=== PATIENT | female | born 1990 | race Asian ===

== ENCOUNTER 2021-01-12 10:35 | Outpatient (REF) | payer OTHER, SELFPAY ==
[2021-01-12 12:00] LABS: Hematocrit 37.5 % (37-47); Hemoglobin 11.7 g/dl (12.0-16.0); Mean Corpuscular HGB Conc 31.2 g/dl (31.0-35.0); Mean Corpuscular Hemoglobin 24.9 pg (27.0-33.0); Mean Corpuscular Volume 79.8 fL (80-98); Mean Platelet Volume 8.8 fL (9.4-12.3); Platelet Count 262 X10*3/uL (160-400); Red Cell Distribution Width 15.1 % (11.0-16.0); White Blood Count 6.1 X10*3/uL (4.8-10.8)
[2021-01-12 12:04] LABS: Estimated Average Glucose 126 mg/dL; Glucose Urine UA NEG (NEG); Leukocyte Esterase Urine 2+ (NEG); Nitrite Urine NEG (NEG); Specific Gravity - Urine 1.015 (1.005-1.025); Urine Blood 3+ (NEG); Urine Ketones NEG (NEG); Urine Protein NEG (NEG-TRACE)
[2021-01-12 12:09] LABS: Appearance Urine HAZY; Color Urine STRAW
[2021-01-12 12:36] LABS: Alanine Aminotransferase 25 U/L (0-31); Albumin Level 4.3 g/dL (3.5-5.0); Alkaline Phosphatase 73 U/L (39-117); Aspartate Amino Transferase 18 U/L (5-31); Bilirubin Direct < 0.2 mg/dL (0.0-0.5); Bilirubin Total 0.2 mg/dL (0.0-1.0); Blood Urea Nitrogen 9 mg/dL (9-16); Calcium 9.2 mg/dL (8.4-10.2); Cholesterol 163 mg/dL; Estimated Glomerular Filt Rate > 60; Glucose Random 98 mg/dL (60-115); HDL Cholesterol 44 mg/dL; LDL Cholesterol Calculated 98 mg/dl; Total Protein 7.5 g/dL (6.5-8.0); Triglycerides 106 mg/dL
[2021-01-12 12:40] LABS: Thyroid Stimulating Hormone 1.97 uIU/mL (0.32-4.0)
[2021-01-12 12:49] LABS: Bacteria Urine 1+ /LPF; Squamous Epithelial Cell Urine 2+ /LPF
[2021-01-12 12:52] LABS: Vitamin B12 451 pg/mL (200-900)
[2021-01-12 13:19] LABS: Anion Gap 11 (12-20); Carbon Dioxide 26 mmol/L (22-29); Chloride 107 mmol/L (96-108); Potassium 4.5 mmol/L (3.3-5.1); Sodium 139 mmol/L (135-145)
[2021-01-17 11:21] LABS: Vitamin D 25-OH, D2 <4 ng/mL; Vitamin D 25-OH, D3 11 ng/mL; Vitamin D 25-OH, Total 11 ng/mL (30-100)
== END 2021-01-12 10:36 | disposition home or self-care (01) ==
LOC: HO.LAB 10:35
PROVIDERS: PCP Internal Medicine; Visit Provider Internal Medicine
DX: R10.84 Generalized abdominal pain (principal); N93.8 Other specified abnormal uterine and vaginal bleeding
CPT/HCPCS: 36415; 80048; 80061; 80076; 81001; 81003; 82306; 82607; 82746; 83036; 84443; 85027

== ENCOUNTER 2021-01-26 08:13 | Outpatient (REF) | payer OTHER, SELFPAY ==
[2021-01-26 14:52] LABS: CT PCR NOT DETECTED (Not Detect.); NG PCR NOT DETECTED (Not Detect.)
[2021-01-27 09:22] LABS: BV Int Neg Control Negative (Negative); BV Int Pos Control Positive (Positive)
== END 2021-01-26 08:14 | disposition home or self-care (01) ==
LOC: HO.LAB 08:13
PROVIDERS: Visit Provider Obstetrics & Gynecology
DX: Z01.419 Encounter for gynecological examination (general) (routine) without abnormal findings (principal); R10.9 Unspecified abdominal pain; N93.8 Other specified abnormal uterine and vaginal bleeding; Z11.3 Encounter for screening for infections with a predominantly sexual mode of transmission; Z11.8 Encounter for screening for other infectious and parasitic diseases; Z97.5 Presence of (intrauterine) contraceptive device; Z01.00 Encounter for examination of eyes and vision without abnormal findings
CPT/HCPCS: 87480; 87491; 87510; 87591; 87660; 88142

== ENCOUNTER → 2022-02-28 10:11 | Outpatient (BNVA) | payer OTHER, SELFPAY | PROVIDERS: PCP Internal Medicine; Visit Provider Advanced Practice Midwife | DX: Z01.419 Encounter for gynecological examination (general) (routine) without abnormal findings (principal) ==

== ENCOUNTER 2022-05-19 14:45 | Outpatient (REF) | payer OTHER, SELFPAY ==
[2022-05-19 16:06] LABS: Hemoglobin 12.9 g/dl (12.0-16.0); Mean Corpuscular HGB Conc 32.3 g/dl (31.0-35.0); Mean Corpuscular Hemoglobin 26.3 pg (27.0-33.0); Mean Corpuscular Volume 81.5 fL (80.0-98.0); Mean Platelet Volume 8.8 fL (9.4-12.3); Platelet Count 233 X10*3/uL (160-400); Red Blood Count 4.91 X10*6/uL (4.20-5.50); Red Cell Distribution Width 14.4 % (11.0-16.0); White Blood Count 8.2 X10*3/uL (4.8-10.8)
[2022-05-19 16:27] LABS: Alanine Aminotransferase 28 U/L (0-31); Albumin Level 4.5 g/dL (3.5-5.0); Alkaline Phosphatase 73 U/L (39-117); Anion Gap 13 (12-20); Aspartate Amino Transferase 22 U/L (5-31); Bilirubin Direct 0.2 mg/dL (0.0-0.5); Bilirubin Total 0.4 mg/dL (0.0-1.0); Blood Urea Nitrogen 8 mg/dL (9-16); Calcium 9.2 mg/dL (8.4-10.2); Carbon Dioxide 24 mmol/L (22-29); Chloride 105 mmol/L (96-108); Cholesterol 148 mg/dL; Estimated Glomerular Filt Rate > 60; Glucose Random 81 mg/dL (60-115); HDL Cholesterol 39 mg/dL; LDL Cholesterol Calculated 91 mg/dl; Potassium 3.9 mmol/L (3.3-5.1); Sodium 138 mmol/L (135-145); Total Protein 7.9 g/dL (6.5-8.0); Triglycerides 91 mg/dL
[2022-05-19 16:29] LABS: Appearance Urine CLEAR; Color Urine STRAW; Glucose Urine UA NEG (NEG); Leukocyte Esterase Urine NEG (NEG); Nitrite Urine NEG (NEG); PH 5.5 (5.0-8.0); Specific Gravity - Urine <= 1.005 (1.005-1.025); Urine Blood TRACE (NEG); Urine Ketones NEG (NEG); Urine Protein NEG (NEG-TRACE)
[2022-05-19 16:47] LABS: Thyroid Stimulating Hormone 2.25 uIU/mL (0.32-4.0)
[2022-05-19 16:49] LABS: Bacteria Urine TRACE /LPF; RBC Urine 0 /HPF (0); Squamous Epithelial Cell Urine TRACE /LPF; WBC Urine 0 /HPF (0-4)
== END 2022-05-19 14:46 | disposition home or self-care (01) ==
LOC: HO.LAB 14:45
PROVIDERS: PCP Internal Medicine; Visit Provider Internal Medicine
DX: Z00.00 Encounter for general adult medical examination without abnormal findings (principal); F41.1 Generalized anxiety disorder; E66.09 Other obesity due to excess calories
CPT/HCPCS: 36415; 80048; 80061; 80076; 81001; 84443; 85027

== ENCOUNTER 2022-05-31 12:24 | Outpatient (REF) | payer OTHER, SELFPAY ==
[2022-05-31 13:58] LABS: Appearance Urine CLEAR; Color Urine STRAW; Glucose Urine UA NEG (NEG); Leukocyte Esterase Urine NEG (NEG); Nitrite Urine NEG (NEG); Specific Gravity - Urine <= 1.005 (1.005-1.025); Urine Blood NEG (NEG); Urine Ketones NEG (NEG); Urine Protein NEG (NEG-TRACE)
== END 2022-05-31 12:25 | disposition home or self-care (01) ==
LOC: HO.LAB 12:24
PROVIDERS: PCP Internal Medicine; Visit Provider Internal Medicine
DX: R30.0 Dysuria (principal)
CPT/HCPCS: 81003

== ENCOUNTER 2022-06-03 20:32 | Emergency (ER) | payer OTHER, SELFPAY ==
--- NOTE | ~2022-06-03 | CT_ITS ---
EXAMINATION: CT ABDOMEN AND PELVIS WITHOUT CONTRAST CLINICAL INFORMATION: Right flank pain. UTI symptoms. COMPARISON: None TECHNIQUE: Multidetector volumetric imaging was performed from the superior aspect of the liver through the pubic symphysis. Sagittal and coronal reformatted images were obtained on the technologist's workstation. This CT examination was performed using dose optimization techniques as appropriate, variously including the following: *Automated exposure control *Adjustment of mA and/or kV according to patient size (this includes techniques or standardized protocols for targeted exams where dose is matched to indication/reason for exam; i.e. extremities or head) *Use of iterative reconstruction technique DLP: 621 mGy-cm FINDINGS: LUNG BASES: The visualized lung bases are unremarkable. LIVER, GALLBLADDER, AND BILIARY TREE: The liver is normal in size, shape, and attenuation. No focal hepatic lesion or biliary ductal dilatation is present. Gallbladder unremarkable. PANCREAS: Unremarkable. SPLEEN: Unremarkable. ADRENAL GLANDS: Unremarkable. KIDNEYS AND URETERS: The kidneys are normal in size, shape, and attenuation. No hydronephrosis, hydroureter, or calculi seen. No perinephric stranding. BLADDER: No bladder wall thickening or perivesicular inflammation. GASTROINTESTINAL TRACT: The small and large bowel are unremarkable. The appendix is unremarkable. ABDOMINAL WALL: No significant hernia is appreciated. LYMPH NODES: Normal. VASCULAR: Unremarkable. PELVIC VISCERA: There is a 7.2 x 4.8 cm cyst within the left ovary measuring simple fluid attenuation. Right ovary is suspected to reside along the right posterolateral uterus. Uterus is grossly unremarkable. OSSEOUS STRUCTURES: Unremarkable. CT/CT abdomen pelvis wo con IMPRESSION: * Unremarkable unenhanced CT imaging appearance of the urinary tract. * Incidental 7.2 cm left ovarian cyst. These are typically incompletely characterized by ultrasound when they exceed 7 cm. As such, consider MRI of the pelvis without and with contrast for further evaluation.
--- NOTE | ~2022-06-03 | US_ITS ---
EXAMINATION: US PELVIS CLINICAL INFORMATION: Bilateral lower quadrant pain COMPARISON: CT dated 06/03/2022 TECHNIQUE: Ultrasound of the pelvis is performed using both transabdominal and transvaginal transducers along with Doppler. Transvaginal imaging is performed due to inadequate visualization transabdominally. Spectral analysis was utilized. FINDINGS: Uterus: The uterus is anteverted and measures 10.5 x 4.7 x 6.5 cm. The double wall endometrial thickness is 13 mm. There is a 1.0 x 0.7 x 0.6 cm echogenic structure within, or just deep to the dorsal fundal endometrium. The uterus is smooth in contour and has normal myometrial echogenicity. No visible fibroid. Adnexa: Both ovaries are visualized. There is normal color flow to the adnexa. There is no ovarian torsion. There is no pelvic ascites or fluid collection. Right ovary measures 5.2 x 2.1 x 3.1 cm. Left ovary is splayed around the previously seen anechoic simple cyst which measures 7.5 x 4.8 x 6.0 cm. No solid components are evident. Left ovary measures 8.9 x 4.7 x 6.2 cm in total. US/US pelvic and transvaginal IMPRESSION: * No evidence of ovarian torsion. * There is a 7.5 cm simple appearing cyst within the left ovary. As a precaution, recommend nonemergent MRI of the pelvis without and with contrast for further evaluation. * Nonspecific 1.0 cm echogenic structure within, or just deep to the dorsal fundal endometrium. This could represent an endometrial polyp, or possibly a submucosal leiomyoma/lipoleiomyoma. Also, assessment on follow up MRI recommended. Sonohysterography would lend further specificity is subsequently indicated.
--- NOTE | ~2022-06-03 | US_ITS ---
EXAMINATION: US PELVIS CLINICAL INFORMATION: Bilateral lower quadrant pain COMPARISON: CT dated 06/03/2022 TECHNIQUE: Ultrasound of the pelvis is performed using both transabdominal and transvaginal transducers along with Doppler. Transvaginal imaging is performed due to inadequate visualization transabdominally. Spectral analysis was utilized. FINDINGS: Uterus: The uterus is anteverted and measures 10.5 x 4.7 x 6.5 cm. The double wall endometrial thickness is 13 mm. There is a 1.0 x 0.7 x 0.6 cm echogenic structure within, or just deep to the dorsal fundal endometrium. The uterus is smooth in contour and has normal myometrial echogenicity. No visible fibroid. Adnexa: Both ovaries are visualized. There is normal color flow to the adnexa. There is no ovarian torsion. There is no pelvic ascites or fluid collection. Right ovary measures 5.2 x 2.1 x 3.1 cm. Left ovary is splayed around the previously seen anechoic simple cyst which measures 7.5 x 4.8 x 6.0 cm. No solid components are evident. Left ovary measures 8.9 x 4.7 x 6.2 cm in total. US/US pelvic ovarian doppler IMPRESSION: * No evidence of ovarian torsion. * There is a 7.5 cm simple appearing cyst within the left ovary. As a precaution, recommend nonemergent MRI of the pelvis without and with contrast for further evaluation. * Nonspecific 1.0 cm echogenic structure within, or just deep to the dorsal fundal endometrium. This could represent an endometrial polyp, or possibly a submucosal leiomyoma/lipoleiomyoma. Also, assessment on follow up MRI recommended. Sonohysterography would lend further specificity is subsequently indicated.
[2022-06-03 21:49] LABS: MANUAL DIFF FLAG NO
[2022-06-03 21:51] LABS: Basophils Percent Auto 0.2 % (0-2); Eosinophils Absolute Auto 0.1 X10*3/uL (0.0-0.4); Eosinophils Percent Auto 1.3 % (0-4); Hematocrit 37.4 % (37.0-47.0); Hemoglobin 12.1 g/dl (12.0-16.0); Imm Gran Abs Auto 0.03 X10*3/uL (0.00-0.03); Imm Gran Pct Auto 0.3 % (0.0-0.4); Lymphocytes Absolute Auto 3.6 X10*3/uL (1.2-4.9); Lymphocytes Percent Auto 35.5 % (20-40); Mean Corpuscular HGB Conc 32.4 g/dl (31.0-35.0); Mean Corpuscular Hemoglobin 26.7 pg (27.0-33.0); Mean Corpuscular Volume 82.4 fL (80.0-98.0); Mean Platelet Volume 8.6 fL (9.4-12.3); Monocytes Absolute Auto 0.5 X10*3/uL (0.1-1.2); Monocytes Percent Auto 4.9 % (2-11); Neutrophils Absolute Auto 5.9 x10*3/uL (2.0-8.3); Neutrophils Percent Auto 57.8 % (45-73); Platelet Count 217 X10*3/uL (160-400); Red Blood Count 4.54 X10*6/uL (4.20-5.50); Red Cell Distribution Width 14.2 % (11.0-16.0); White Blood Count 10.2 X10*3/uL (4.8-10.8)
[2022-06-03 21:58] VITALS: BP 147/86; PULSE 75; RESP 16; TEMP 36.5; O2SAT 99; BMI 30.1
[2022-06-03 22:21] LABS: Alanine Aminotransferase 28 U/L (0-31); Albumin Level 4.2 g/dL (3.5-5.0); Alkaline Phosphatase 75 U/L (39-117); Anion Gap 14 (12-20); Aspartate Amino Transferase 20 U/L (5-31); Bilirubin Total < 0.2 mg/dL (0.0-1.0); Blood Urea Nitrogen 11 mg/dL (9-16); Calcium 9.4 mg/dL (8.4-10.2); Carbon Dioxide 27 mmol/L (22-29); Chloride 104 mmol/L (96-108); Creatinine Clr Calc Pharmacy 113.9; Estimated Glomerular Filt Rate > 60; Glucose Random 89 mg/dL (60-115); Lipase 50 U/L (8-78); Potassium 3.5 mmol/L (3.3-5.1); Sodium 141 mmol/L (135-145); Total Protein 7.4 g/dL (6.5-8.0)
[2022-06-03 22:41] LABS: Appearance Urine CLEAR; Color Urine STRAW; Glucose Urine UA NEG (NEG); Leukocyte Esterase Urine NEG (NEG); Nitrite Urine NEG (NEG); Specific Gravity - Urine <= 1.005 (1.005-1.025); Urine Blood NEG (NEG); Urine Ketones NEG (NEG); Urine Protein NEG (NEG-TRACE)
[2022-06-03 22:43] LABS: UPreg QC Valid YES; Urine Pregnancy NEGATIVE (NEGATIVE)
--- NOTE | 2022-06-03 23:03 | ED.FEMALEGU ---
HPI - Female Genitourinary General Chief complaint: Urogenital-Female Stated complaint: uti, pain in abd Time Seen by Provider: 06/03/22 23:02 Source: patient Mode of arrival: ambulatory Limitations: no limitations History of Present Illness HPI Narrative: This is a 32-year-old female presenting to the emergency department with complaints of abdominal pain in the lower region, and urinary tract symptoms, X 1week. Patient tells me that she took an at-home urinary tract infection test and it was positive with high leukocytes, she tells me she drink cranberry juice and garlic extract. She tells me it was repeated by her PCP and it was normal. She tells me that she is still having bladder spasming, dysuria and urgency as well as right-sided flank pain. She also reports subjective fevers, chills and fatigue. Denies chest pain, shortness of breath, nausea, vomiting, changes in bowel habits. MD elicited complaint: UTI Onset (ago): week(s) (1) Severity: moderate Severity scale (1-10): 10 Quality of pain: cramping and aching Consistency: constant Vaginal discharge: none Vaginal bleeding: none Exacerbating factors: palpation Relieving factors: none Associated symptoms: abdominal pain, weakness, fever and chills Treatment prior to arrival: other (Garlic extract and cranberry jucie) Related Data Previous Rx's Medication Instructions Recorded prenat.vits,darnell,avg-[id number] 1 tab PO DAILY #90 tabs 02/28/22 escitalopram oxalate 10 mg tablet 10 mg PO DAILY 30 days #30 tabs 05/19/22 naproxen 500 mg tablet 500 mg PO BID PRN pain #14 tabs 06/04/22 Allergies Allergy/AdvReac Type Severity Reaction Status Date / Time No Known Allergies Allergy Verified 05/19/22 13:38 Review of Systems Review of Systems: Constitutional : No Weight loss, No Fever, No Chills, No Fatigue, No Malaise ENT/Mouth : No sore throat, No Rhinorrhea Eyes: No Eye Pain, No Swelling, No Redness Cardiovascular : No Chest Pain, No SOB, No Dyspnea on Exertion, No Orthopnea, No Edema, No Palpitations Respiratory : No Cough, No Sputum, No Wheezing Gastrointestinal : No Nausea, No Vomiting, No Diarrhea, No Constipation, No abdominal Pain, No Hematochezia, No Melena Genitourinary : + Dysuria, + Urinary Frequency, No Hematuria, Musculoskeletal : No joint pain, No Myalgias, No Joint Swelling Skin : No Skin Lesions, No rash Neuro : No Weakness, No Numbness, No Dizziness, No Headache Psych : No Anxiety/Panic, No Depression All other systems reviewed and are negative Yes all other systems are reviewed and are negative [facility] Past Medical History Medical History Abdominal pain Dysfunctional uterine bleeding Obesity (BMI 30.0-34.9) Other obesity due to excess calories Plantar fasciitis Surgical History History of rectal abscess Family History Family History Father No problems noted. Mother Breast lump Sister No problems noted. 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 Oriented X3.? No acute distress.? Head: Normocephalic, atraumatic, no step-offs or deformities Eyes: Pupils equal, round and reactive to light.? ENT: Pharynx normal.? Neck: Normal inspection.? Neck supple.? CVS: Normal heart rate and rhythm.? Pulses normal.? Respiratory: No respiratory distress.? Breath sounds normal.? Abdomen: Soft and +right-sided flank tenderness, positive CVA tenderness on the right. There is also pain to palpation to the right lower quadrant, suprapubic region and left lower quadrant. .? Skin: Skin warm and dry.? Normal skin color.? Normal skin turgor.? Extremities: No lower extremity edema.? No calf ttp. 5/5 strength to bilateral upper and lower extremities Neuro: Oriented X 3.? No motor deficit.? No sensory deficit. CN 2-12 intact Course Reevaluation(s) Reevaluation #1: CBC within normal limits. Chemistry with no acute findings. Lipase within normal limits. Urine clean. CT of the abdomen and pelvis with concerns of a large left ovarian cyst, patient having lower abdominal pain and tenderness to palpation will obtain an ultrasound to rule out torsion, partial torsion any abnormalities. I had a conversation with patient about her labs, urine, CT scan. I asked her if there is any chance she may have a sexually transmitted infection she tells me no. Low suspicion for PID at this time. Will obtain a pelvic ultrasound to rule out torsion. Time: 00:23 Reevaluation #2: At this time pelvic ultrasound pending with Doppler pending. Sign-out given to Dr. Greene pending US and improvment Time: 01:56 MDM - Female Genitourinary MDM Narrative Medical decision making narrative: 2300 32 yo f presents w/ lower abd pain, right sided flank pain and uti sx X1 week. Physical examination significant for right-sided flank tenderness, positive CVA tenderness on the right. There is also pain to palpation to the right lower quadrant, suprapubic region and left lower quadrant. Will rule out UTI, pyelo, kidney stones. No signs of acute abdomen at this time. Plan at this time is basic labs, urine and abdominal CT. Medical Records Attestation: I reviewed the patient's medical records. Lab Data Attestation: I reviewed the patient's lab results. Result diagrams: 06/03/22 21:45 06/03/22 21:45 Labs: Lab Results 06/03/22 06/03/22 06/03/22 Range/Units 21:45 21:45 22:35 WBC 10.2 (4.8-10.8) X10*3/uL RBC 4.54 (4.20-5.50) X10*6/uL Hgb 12.1 (12.0-16.0) g/dl Hct 37.4 (37.0-47.0) % MCV 82.4 (80.0-98.0) fL MCH 26.7 L (27.0-33.0) pg MCHC 32.4 (31.0-35.0) g/dl RDW 14.2 (11.0-16.0) % Plt Count 217 (160-400) X10*3/uL MPV 8.6 L (9.4-12.3) fL Immature Gran % (Auto) 0.3 (0.0-0.4) % Neut % (Auto) 57.8 (45-73) % Lymph % (Auto) 35.5 (20-40) % Pettis % (Auto) 4.9 (2-11) % Eos % (Auto) 1.3 (0-4) % Baso % (Auto) 0.2 (0-2) % Lymph # (Auto) 3.6 (1.2-4.9) X10*3/uL Pettis # (Auto) 0.5 (0.1-1.2) X10*3/uL Eos # (Auto) 0.1 (0.0-0.4) X10*3/uL Baso # (Auto) 0.0 (0.0-0.2) X10*3/uL Abs Immat Gran (auto) 0.03 (0.00-0.03) X10*3/uL Absolute Neuts (auto) 5.9 (2.0-8.3) x10*3/uL Absolute Nucleated RBC 0.000 (0.0-0.012) X10*3/uL Nucleated RBC % (auto) 0.0 (0.0-0.2) /100WBC Sodium 141 (135-145) mmol/L Potassium 3.5 (3.3-5.1) mmol/L Chloride 104 (96-108) mmol/L Carbon Dioxide 27 (22-29) mmol/L Anion Gap 14 (12-20) BUN 11 (9-16) mg/dL Creatinine 0.71 (0.5-1.4) mg/dL Estim Creat Clear Calc 113.9 Estimated GFR > 60 Random Glucose 89 (60-115) mg/dL Calcium 9.4 (8.4-10.2) mg/dL Total Bilirubin < 0.2 (0.0-1.0) mg/dL AST 20 (5-31) U/L ALT 28 (0-31) U/L Alkaline Phosphatase 75 (39-117) U/L Total Protein 7.4 (6.5-8.0) g/dL Albumin 4.2 (3.5-5.0) g/dL Lipase 50 (8-78) U/L Urine Color STRAW Urine Appearance CLEAR Urine pH 6.0 (5.0-8.0) Ur Specific [place] <= 1.005 (1.005-1.025) Urine Protein NEG (NEG-TRACE) MG/DL Urine Glucose (UA) NEG (NEG) MG/DL Urine Ketones NEG (NEG) MG/DL Urine Blood NEG (NEG) Urine Nitrite NEG (NEG) Ur Leukocyte Esterase NEG (NEG) Urine Test (NEGATIVE) 06/03/22 Range/Units 22:35 WBC (4.8-10.8) X10*3/uL RBC (4.20-5.50) X10*6/uL Hgb (12.0-16.0) g/dl Hct (37.0-47.0) % MCV (80.0-98.0) fL MCH (27.0-33.0) pg MCHC (31.0-35.0) g/dl RDW (11.0-16.0) % Plt Count (160-400) X10*3/uL MPV (9.4-12.3) fL Immature Gran % (Auto) (0.0-0.4) % Neut % (Auto) (45-73) % Lymph % (Auto) (20-40) % Pettis % (Auto) (2-11) % Eos % (Auto) (0-4) % Baso % (Auto) (0-2) % Lymph # (Auto) (1.2-4.9) X10*3/uL Pettis # (Auto) (0.1-1.2) X10*3/uL Eos # (Auto) (0.0-0.4) X10*3/uL Baso # (Auto) (0.0-0.2) X10*3/uL Abs Immat Gran (auto) (0.00-0.03) X10*3/uL Absolute Neuts (auto) (2.0-8.3) x10*3/uL Absolute Nucleated RBC (0.0-0.012) X10*3/uL Nucleated RBC % (auto) (0.0-0.2) /100WBC Sodium (135-145) mmol/L Potassium (3.3-5.1) mmol/L Chloride (96-108) mmol/L Carbon Dioxide (22-29) mmol/L Anion Gap (12-20) BUN (9-16) mg/dL Creatinine (0.5-1.4) mg/dL Estim Creat Clear Calc Estimated GFR Random Glucose (60-115) mg/dL Calcium (8.4-10.2) mg/dL Total Bilirubin (0.0-1.0) mg/dL AST (5-31) U/L ALT (0-31) U/L Alkaline Phosphatase (39-117) U/L Total Protein (6.5-8.0) g/dL Albumin (3.5-5.0) g/dL Lipase (8-78) U/L Urine Color Urine Appearance Urine pH (5.0-8.0) Ur Specific [place] (1.005-1.025) Urine Protein (NEG-TRACE) MG/DL Urine Glucose (UA) (NEG) MG/DL Urine Ketones (NEG) MG/DL Urine Blood (NEG) Urine Nitrite (NEG) Ur Leukocyte Esterase (NEG) Urine Test NEGATIVE (NEGATIVE) Critical Care Time Critical Care Time Critical Care Time: No Discharge Plan Discharge Clinical Impression: Cystitis, Ovarian cyst Patient Disposition: Home, Self-Care Instructions: Ovarian Cyst (ED) Additional Instructions: Take your medications as prescribed. If you were prescribed antibiotics today, it is important that you take your medication to their entirety, do not skip any doses, do not finish them early. Follow-up with your primary care provider this week. Follow up with OBGYN in a week or two or with worsening symptoms Return to the emergency department with new or worsening symptoms. Such as fevers, chills, chest pain, shortness of breath, nausea, vomiting, dizziness, headache, vision changes, lethargy In case of emergency call 911 ?CT/CT abdomen pelvis wo con IMPRESSION: *? Unremarkable unenhanced CT imaging appearance of the urinary tract. *? Incidental 7.2 cm left ovarian cyst. These are typically incompletely characterized by ultrasound when they exceed 7 cm. As such, consider MRI of the pelvis without and with contrast for further evaluation.? ? Prescriptions: New naproxen 500 mg tablet 500 mg PO BID PRN (Reason: pain) Qty: 14 0RF Rx Instructions: Take with food No Action escitalopram oxalate 10 mg tablet 10 mg PO DAILY 30 Days Qty: 30 1RF prenat.vits,darnell,[id number]-[id number] Tablet 1 tab PO DAILY Qty: 90 3RF Referrals: Physician,Maisha J [Primary Care Provider] - 2 days Felipe Raymundo MD [Physician] - 1 week Stand Alone Forms: Work/School Release
[2022-06-03 23:49] VITALS: BP 116/69; PULSE 72; RESP 20; TEMP 36.9; O2SAT 100
[2022-06-04] MEDS: Ketorolac Tromethamine 15 MG/ML VIAL IM (02:14)
== END 2022-06-04 02:23 | disposition home or self-care (01) ==
PROVIDERS: Internal Medicine; Emergency Provider Emergency Medicine Emergency Medical Services
DX: N30.90 Cystitis, unspecified without hematuria (principal); N83.292 Other ovarian cyst, left side; E66.9 Obesity, unspecified; Z68.30 Body mass index [BMI] 30.0-30.9, adult
CPT/HCPCS: 36415; 74176; 76830; 76856; 80053; 81003; 81025; 83690; 85025; 93975; 96372; 99284; J1885

== ENCOUNTER → 2022-07-20 12:08 | Outpatient (BNVA) | payer OTHER, SELFPAY | PROVIDERS: PCP Internal Medicine; Visit Provider Obstetrics & Gynecology | DX: R93.5 Abnormal findings on diagnostic imaging of other abdominal regions, including retroperitoneum (principal); N83.209 Unspecified ovarian cyst, unspecified side | CPT/HCPCS: 99202 ==

== ENCOUNTER 2022-08-03 09:04 | Outpatient (REF) | payer OTHER, SELFPAY ==
--- NOTE | ~2022-08-03 | MR_ITS ---
EXAMINATION: MR PELVIS WITHOUT AND WITH CONTRAST CLINICAL INFORMATION: Follow up left ovarian cyst. COMPARISON: Previous CT of the abdomen and pelvis and pelvic ultrasound May 2022. TECHNIQUE: Sagittal, axial and coronal sequences through the pelvis with and without contrast. The patient received 8 mL intravenous Gadavist contrast. FINDINGS: The uterus is normal in size and shape and measures 7.6 x 4.5 x 6.5 cm in dimension. No focal uterine lesion is seen. Endometrial thickness measures 1 cm. Junctional zone is normal in thickness. The cervix is normal. The right ovary is normal-appearing and measures 3.4 x 2.5 x 2.2 cm. The left ovary measures 2.4 x 2.4 x 1.8 cm. There is a 5.5 x 4.2 x 6.2 cm simple left adnexal cyst. This is low signal on T1-weighted sequences, high signal on T2-weighted sequences. This has no areas of wall thickening or mural nodule. This demonstrates no evidence of enhancement and is suggestive of a simple cyst. This is located anterior to the uterus. This may cause mass effect on the bladder. The bladder is not optimally distended. There is a small amount of fluid in the pelvis. No adenopathy. Visualized vascular structures are normal. No hernia. Visualized bowel is normal. There is degenerative disc disease at L4-L5. The bony structures are otherwise normal. MR/MR pelvis wo/w con IMPRESSION: 5.5 x 4.2 x 6.2 cm simple left adnexal cyst. This is slightly to the left of midline and anterior to the uterus. This may cause mass effect on the bladder. This is similar to May 2022 exams.
== END 2022-08-03 09:05 | disposition home or self-care (01) ==
LOC: HO.MRI 09:04
PROVIDERS: Visit Provider Obstetrics & Gynecology
DX: N83.209 Unspecified ovarian cyst, unspecified side (principal); R93.5 Abnormal findings on diagnostic imaging of other abdominal regions, including retroperitoneum
CPT/HCPCS: 72197; A9585

== ENCOUNTER → 2022-09-15 09:00 | Outpatient (BNVA) | payer OTHER, SELFPAY | PROVIDERS: PCP Internal Medicine; Visit Provider Obstetrics & Gynecology | DX: N83.209 Unspecified ovarian cyst, unspecified side (principal) | CPT/HCPCS: 99212 ==

== ENCOUNTER 2023-03-03 09:59 | Outpatient (REF) | payer OTHER, SELFPAY ==
[2023-03-09 07:24] LABS: HPV mRNA E6/E7 rflx Not Detected (Not Detected)
== END 2023-03-03 10:00 | disposition home or self-care (01) ==
LOC: HO.LNP 09:59
PROVIDERS: PCP Internal Medicine; Visit Provider Advanced Practice Midwife
DX: Z01.419 Encounter for gynecological examination (general) (routine) without abnormal findings (principal); N83.202 Unspecified ovarian cyst, left side; Z20.2 Contact with and (suspected) exposure to infections with a predominantly sexual mode of transmission
CPT/HCPCS: 87624; 88142

== ENCOUNTER 2023-03-15 11:02 | Outpatient (REF) | payer OTHER, SELFPAY ==
--- NOTE | ~2023-03-15 | US_ITS ---
EXAMINATION: US PELVIS CLINICAL INFORMATION: Ovarian cyst COMPARISON: Previous MR of the pelvis July [address] and ultrasound of the pelvis May 2022 TECHNIQUE: Ultrasound of the pelvis is performed using both transabdominal and transvaginal transducers along with Doppler. Transvaginal imaging is performed due to inadequate visualization transabdominally. FINDINGS: The uterus is anteverted and measures 7.7 x 4.5 x 5.7 cm in dimension. No focal uterine lesion. Endometrial thickness is normal measuring 1 cm. There are nabothian cysts in the cervix. The right ovary is normal-appearing and measures 3.3 x 1.5 x 1.8 cm. Left ovary is enlarged and measures 5.9 x 4.6 x 5.5 cm. There is a 4.8 x 5.2 x 6.5 cm simple left ovarian cyst. This is not appreciably changed in size from previous exams. This is probably benign. No additional follow-up recommended. Arterial and venous flow is seen in the left ovary. There is a small amount of fluid in the pelvis. US/US pelvic and transvaginal IMPRESSION: Stable 5 x 6 cm left ovarian cyst.
== END 2023-03-15 11:03 | disposition home or self-care (01) ==
LOC: HO.US 11:02
PROVIDERS: PCP Internal Medicine; Visit Provider Obstetrics & Gynecology
DX: N83.209 Unspecified ovarian cyst, unspecified side (principal)
CPT/HCPCS: 76830; 76856

== ENCOUNTER → 2023-04-05 12:16 | Outpatient (BNVA) | payer OTHER, SELFPAY | PROVIDERS: PCP Internal Medicine; Visit Provider Obstetrics & Gynecology | DX: N83.292 Other ovarian cyst, left side (principal) | CPT/HCPCS: 99212 ==

== ENCOUNTER 2023-05-24 08:29 | Outpatient (AMB) | payer OTHER, SELFPAY ==
--- NOTE | 2023-05-24 08:59 | MHC.PC.OV ---
Vital Signs 05/24/23 09:01 Height 5 ft 3 in Weight 174 lb 4 oz BMI 30.9 BP 112/70 Blood Pressure Location Lt brachial Position Sitting Pulse 84 Pulse Source Pulse Oximeter Pulse Oximetry (%) 99 Oxygen Delivery Method Room Air Intake Visit Reasons: Annual exam Intake Note: Patient is here today for a physical. Acute Care Physical Therapist Required: No Quantometer Operator: Not Required per policy Accompanied by: Self / Same As Patient Allergies No Known Allergies Allergy (Verified 05/24/23 09:00) Tobacco use date assessed: 05/24/23 Dental Screening Dental Screen Date: 05/24/23 Did you have a dental visit in the last 12 months?: Yes Did you have a dental problem in the last 6 months where you did not have access to dental care?: No Was dental information given to patient?: Patient has dentist HPI Annual exam HPI Details 33-year-old female presents to the office requesting an annual physical. In addition patient wants to discuss her condition of general anxiety. 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 A new store has opened closeby. Patient feels release test, racing thoughts and unable to focus. Crying spells. [facility] Medical History Abdominal pain Dysfunctional uterine bleeding Obesity (BMI 30.0-34.9) Other obesity due to excess calories Plantar fasciitis Simple ovarian cyst Surgical History History of rectal abscess Family History Father No problems noted. Mother Breast lump Sister No problems noted. 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 1. Little interest or pleasure in doing things: not at all 2. Feeling down, depressed, or hopeless: not at all 3. Trouble falling or staying asleep, or sleeping too much: not at all 4. Feeling tired or having little energy: not at all 5. Poor appetite or overeating: not at all 6. Feeling bad about yourself - or that you are a failure or have let yourself or your family down: not at all 7. Trouble concentrating on things, such as reading the newspaper or watching television: not at all 8. Moving or speaking so slowly that other people could have noticed. Or the opposite - being so fidgety or restless that you have been moving around a lot more than usual: not at all 9. Thoughts that you would be better off or of hurting yourself in some way: not at all Total score: 0 Depression Screening Interpretation: Negative Source: Developed by Drs. Vijay Trevino, Doris Zhou, Nikko Lyon and colleagues, with an educational geno from [employer]. Thrive Questionnaire Date Thrive assessed: 05/24/23 I am a: Patient What is your living situation today?: I have a steady place to live Within the past 12 months, did the food you bought not last and you didn't have the money to get more?: Never true Within the past 12 months, did you worry whether your food would run out before you got money to buy more?: Never true Do you have trouble paying for medicines?: No Do you have trouble getting transportation to medical appointments?: No Do you have trouble paying your heating and electricity bill?: No Do you have trouble taking care of your child, family member or friend?: No Do you have trouble with day-to-day activities such as bathing, preparing meals, shopping, managing finances, etc.?: No Are you currently unemployed and looking for a job?: No Are you interested in more education?: No Currently or been in a relationship where the following occur: no concerns reported AUDIT C Alcohol Use Questionnaire (AUDIT-C) 1. How often do you have a drink containing alcohol?: Monthly or less 2. How many drinks containing alcohol do you have on a typical day when you are drinking?: 1 or 2 Total Score: 1 MANN-7 AMB Questionnaire MANN-7 Date MANN - 7 assessed: 05/24/23 Feeling nervous, anxious, or on edge: 3 = Nearly every day Not being able to stop or control worryin = Nearly every day Worrying too much about different things: 3 = Nearly every day Trouble relaxin = More than half the days Being so restless that it is hard to sit still: 2 = More than half the days Becoming easily annoyed or irritable: 0 = Not at all Feeling afraid as if something awful might happen: 2 = More than half the days Total MANN-7 score (0-4 normal; 5-9 mild; 10-14 moderate; 15-21 severe): 15 Source: Developed by Drs. Vijay Trevino, Doris Zhou, Nikko Lyon and colleagues, with an educational geno from [employer]. Physical exam (Primary Care) Vital Signs: Last Vital Signs Pulse 84 05/24/23 09:01 BP 112/70 05/24/23 09:01 Pulse Ox 99 05/24/23 09:01 Oxygen Delivery Method Room Air 05/24/23 09:01 Care Plan Goal for BP management: Blood pressure is in range. Continue current medications. BMI result Body Mass Index 30.9 BMI Assessment/Plan discussion: High (1 lb per week weight loss suggested.) Tobacco/Smoking Status: Tobacco use Status Tobacco use date assessed 05/24/23 05/24/23 09:05 Patient Tobacco Use Status Never used Tobacco 05/24/23 09:05 e-Cigarette/Vaping Use Never Used 05/24/23 09:05 PHQ-9: PHQ-9 Score PHQ-9: Total score 0 05/24/23 09:05 Depression Screening Interpretation: Negative Thrive Assessment: Date of Thrive Assessment Date Thrive assessed 05/24/23 05/24/23 09:05 Currently or been in a relationship where the following occur: no concerns reported Const General: cooperative, healthy appearing and comfortable HENMT Head: Yes normal to inspection and Yes atraumatic Eyes General: appearance normal, both eyes and all related structures Neck Neck: Yes normal visual inspection and Yes full ROM Chest Chest palpation & inspection: normal inspection of the chest Resp Effort & Inspection: normal respiratory effort Auscultation: clear to auscultation bilaterally Cardio Jugular venous distension: no JVD Palpation: normal PMI Rate: regular rate Heart sounds: S1 normal heart sound present and S2 normal heart sound present GI Palpation (GI): Soft to palpation and No hepatosplenomegaly present Extrem General: Yes normal to inspection and Yes full ROM Assessment and Plan Assessment & Plan (1) Generalized anxiety disorder: Code(s): F41.1 - Generalized anxiety disorder Plan: Various options discussed. I advised patient not to start pharmacotherapy immediately. A therapist has been arranged. Community health worker was contacted in this regard. (2) Other obesity due to excess calories: Code(s): E66.09 - Other obesity due to excess calories Plan: Counseling on the importance of diet and exercise done. (3) Obesity (BMI 30.0-34.9): Code(s): E66.9 - Obesity, unspecified (4) Annual physical exam: Code(s): Z00.00 - Encounter for general adult medical examination without abnormal findings Plan: Will call with results of blood work. Orders: Orders Basic Metabolic Panel Today E66.09 - Other obesity due to excess calories, E66.9 - Obesity, unspecified, E78.00 - Pure hypercholesterolemia, unspecified, F41.1 - Generalized anxiety disorder Lipid Panel Today E66.09 - Other obesity due to excess calories, E66.9 - Obesity, unspecified, E78.00 - Pure hypercholesterolemia, unspecified, F41.1 - Generalized anxiety disorder Liver Panel Today E66.09 - Other obesity due to excess calories, E66.9 - Obesity, unspecified, E78.00 - Pure hypercholesterolemia, unspecified, F41.1 - Generalized anxiety disorder Thyroid Stimulating Hormone Today E66.09 - Other obesity due to excess calories, E66.9 - Obesity, unspecified, E78.00 - Pure hypercholesterolemia, unspecified, F41.1 - Generalized anxiety disorder Complete Blood Count no Diff Today E66.09 - Other obesity due to excess calories, E66.9 - Obesity, unspecified, E78.00 - Pure hypercholesterolemia, unspecified, F41.1 - Generalized anxiety disorder UA and rflx microscopic Today E66.09 - Other obesity due to excess calories, E66.9 - Obesity, unspecified, E78.00 - Pure hypercholesterolemia, unspecified, F41.1 - Generalized anxiety disorder Coding Level of Care Code Est Pt Level 3 (72710) Est Pt Prev Care 18-39y(29034) Diagnoses Generalized anxiety disorder F41.1 Other obesity due to excess calories E66.09 Obesity (BMI 30.0-34.9) E66.9 Annual physical exam Z00.00
[2023-05-24 09:01] VITALS: BP 112/70; PULSE 84; O2SAT 99; BMI 30.9
== END 2023-05-24 09:43 | disposition home or self-care (01) ==
PROVIDERS: PCP Internal Medicine; Visit Provider Internal Medicine
DX: Z00.00 Encounter for general adult medical examination without abnormal findings (principal); F41.1 Generalized anxiety disorder; E66.09 Other obesity due to excess calories; Z68.30 Body mass index [BMI] 30.0-30.9, adult
CPT/HCPCS: 99395

== ENCOUNTER 2023-05-24 09:51 | Outpatient (REF) | payer OTHER, SELFPAY ==
[2023-05-24 10:52] LABS: Hemoglobin 13.4 g/dl (12.0-16.0); Mean Corpuscular HGB Conc 31.9 g/dl (31.0-35.0); Mean Corpuscular Hemoglobin 26.3 pg (27.0-33.0); Mean Corpuscular Volume 82.4 fL (80.0-98.0); Mean Platelet Volume 8.7 fL (9.4-12.3); Platelet Count 240 X10*3/uL (160-400); Red Cell Distribution Width 14.2 % (11.0-16.0); White Blood Count 7.3 X10*3/uL (4.8-10.8)
[2023-05-24 11:37] LABS: Alanine Aminotransferase 25 U/L (0-31); Albumin Level 4.3 g/dL (3.5-5.0); Alkaline Phosphatase 68 U/L (39-117); Anion Gap 11 (12-20); Aspartate Amino Transferase 17 U/L (5-31); Bilirubin Direct 0.2 mg/dL (0.0-0.5); Bilirubin Total 0.4 mg/dL (0.0-1.0); Blood Urea Nitrogen 7 mg/dL (9-16); Calcium 9.7 mg/dL (8.4-10.2); Carbon Dioxide 24 mmol/L (22-29); Chloride 107 mmol/L (96-108); Cholesterol 157 mg/dL; Estimated Glomerular Filt Rate > 60; Glucose Random 99 mg/dL (60-115); HDL Cholesterol 40 mg/dL; LDL Cholesterol Calculated 98 mg/dl; Sodium 138 mmol/L (135-145); Total Protein 7.9 g/dL (6.5-8.0); Triglycerides 99 mg/dL
[2023-05-24 11:45] LABS: Thyroid Stimulating Hormone 3.18 uIU/mL (0.32-4.0)
[2023-05-24 12:17] LABS: Appearance Urine Cloudy; Color Urine Yellow; Glucose Urine UA Negative (Negative); Leukocyte Esterase Urine Moderate (2+) (Negative); Nitrite Urine Negative (Negative); UMIC TRIGGER UA YES; Urine Blood Negative (Negative); Urine Ketones Negative (Negative); Urine Protein Negative (Neg-Trace)
[2023-05-24 12:20] LABS: Bacteria Urine 2+ (None Seen); Hyaline Casts Urine 0-2 /LPF (0-2); RBC Urine 0-2 /HPF (0-2)
== END 2023-05-24 09:52 | disposition home or self-care (01) ==
LOC: HO.LAB 09:51
PROVIDERS: PCP Internal Medicine; Visit Provider Internal Medicine
DX: E66.09 Other obesity due to excess calories (principal); F41.1 Generalized anxiety disorder; E78.00 Pure hypercholesterolemia, unspecified
CPT/HCPCS: 36415; 80048; 80061; 80076; 81001; 84443; 85027

== ENCOUNTER 2023-08-01 15:24 | Outpatient (AMB) | payer OTHER, SELFPAY ==
[2023-08-01 15:36] VITALS: BP 124/86; BMI 30.8
--- NOTE | 2023-08-01 15:36 | MHC.OFFVIS ---
Intake Vital Signs 08/01/23 15:36 Height 5 ft 3 in Weight 174 lb BMI 30.8 BP 124/86 Intake Visit Reasons: Breast lump/pain Intake Note: right breast lump with pain The patient agreed to use of a medical staffing coordinator during this encounter. Scribed for AILYN Gilmore by Su Velarde medical staffing coordinator, on 08/01/2023 at 3:42 pm EST. Rehabilitation Services Aide: Rehabilitation Services Aide Present (Regina) Allergies No Known Allergies Allergy (Verified 08/01/23 15:36) Is last menstrual period known: Yes Last menstrual period: 07/22/23 HPI HPI Comments History of Present Illness Details She is here today with complains of lump in right breast with pain and fullness. Denies nipple discharge, injury to breast, surgeries or cysts. Reports wearing a supportive bra with no under wir. Admits drinking 2 cups of coffee a day. Reports recent miscarriage. LMP 10 days ago. [facility] Medical History Fullness of breast Breast pain, right Simple ovarian cyst Other obesity due to excess calories Obesity (BMI 30.0-34.9) Plantar fasciitis Abdominal pain Dysfunctional uterine bleeding Surgical History History of rectal abscess Family History Father No problems noted. Mother Breast lump Sister No problems noted. 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 Gender identity: Female Cognitive needs: No Hearing needs: No Vision needs: Yes Female Reproductive History Menstrual Age of Menarche: 12 Date of last menstrual period: 07/22/23 Physical Exam Vital Signs: Last Vital Signs BP 124/86 08/01/23 15:36 BMI result Body Mass Index 30.8 Const General: cooperative, healthy appearing, no acute distress, well developed and alert Chest Other: reports right breast pain at 2:00 Chest palpation & inspection: normal inspection of the chest Breast/axilla inspection: normal inspection of the breasts (no puckering, dimpling, peau de orange, retraction, discharge, masses) Breast/axilla palpation: normal palpation of the breasts Assessment & Plan Assessment & Plan (1) Breast pain, right: Code(s): N64.4 - Mastodynia Plan: Discussed: Breast US ordered. Interested in future , continue taking PNV. If missed menses, do home PT and follow up for care. Follow up in person for US results. May use Tylenol prn for breast pain. All of her questions and concerns were addressed to the best of my ability and shared decision making. She is agreeable to plan of care. (2) Fullness of breast: Comment: right Code(s): N64.89 - Other specified disorders of breast Orders: Orders US breast RT complete Today N64.4 - Mastodynia Coding Level of Care Code Est Pt Level 3 (17827) Diagnoses Breast pain, right N64.4 Fullness of breast N64.89
== END 2023-08-01 15:54 | disposition home or self-care (01) ==
LOC: HO.HWS 15:24
PROVIDERS: PCP Internal Medicine; Visit Provider Advanced Practice Midwife
DX: N64.4 Mastodynia (principal); N64.89 Other specified disorders of breast
CPT/HCPCS: 99213

== ENCOUNTER → 2023-08-01 15:24 | Outpatient (BNVA) | payer OTHER, SELFPAY | PROVIDERS: PCP Internal Medicine; Visit Provider Advanced Practice Midwife | DX: N64.4 Mastodynia (principal); N64.89 Other specified disorders of breast | CPT/HCPCS: 99212 ==

== ENCOUNTER 2023-08-18 14:05 | Outpatient (REF) | payer OTHER, SELFPAY ==
--- NOTE | ~2023-08-18 | US_ITS ---
EXAMINATION: MM DIAGNOSTIC DIGITAL BREAST TOMOSYNTHESIS, BILATERAL US BREAST LIMITED, RIGHT MAMMOGRAPHY: CLINICAL INFORMATION: 33-year-old female complaining of superior right breast pain. COMPARISON: Mammography: None. Baseline exam. TECHNIQUE: Digital breast tomosynthesis is performed in both the craniocaudal and mediolateral oblique views along with computer-aided detection (CAD). Synthesized 2D images are generated from the tomosynthesis. FINDINGS: The breasts are heterogeneously dense, which may obscure small masses (ACR BI-RADS breast composition Category c). There are no suspicious masses, suspicious grouped calcifications, or areas of architectural distortion in either breast. The parenchymal pattern is stable from prior exams. No mammographic abnormality is evident in the superior right breast to account for the patient's 12:00 right breast pain. No skin or axillary abnormalities are identified. ULTRASOUND: CLINICAL INFORMATION: 33-year-old female complaining of superior right breast pain. COMPARISON: None TECHNIQUE: Targeted sonographic evaluation was performed using a high frequency linear transducer. Examination was tailored to evaluate the superior right breast in the region of pain. Selected archived documentation. FINDINGS: RIGHT BREAST: There is a mixture of fatty and fibroglandular tissue. No suspicious mass is seen. There is no pathologic acoustic shadowing. There is no axillary adenopathy. There is no ultrasonographic abnormality in the region of right breast pain. US/US breast RT limited mamm only IMPRESSION: There are no findings suspicious for malignancy in either breast. No mammographic or ultrasonographic correlate to the complaint of superior right breast pain. Recommend clinical management. Otherwise, recommend resuming annual screening mammography at age 40. OVERALL ASSESSMENT: Mammography: BI-RADS 1 - Negative Ultrasound: BI-RADS 1 - Negative RECOMMENDATION: 1. Patient should be managed based on the clinical impression. 2. Otherwise, routine annual screening mammography at age 40.. Results were provided to the patient at time of visit by the technologist.
== END 2023-08-18 14:06 | disposition home or self-care (01) ==
LOC: HO.MAMMO 14:05
PROVIDERS: PCP Internal Medicine; Visit Provider Internal Medicine
DX: N64.4 Mastodynia (principal)
CPT/HCPCS: 76642; 77062; 77066

== ENCOUNTER → 2023-08-18 14:30 | Outpatient (BNV) | payer OTHER, SELFPAY | PROVIDERS: PCP Internal Medicine; Visit Provider Radiology Diagnostic Radiology | DX: R92.333 Mammographic heterogeneous density, bilateral breasts (principal); R92.311 Mammographic fatty tissue density, right breast; R92.321 Mammographic fibroglandular density, right breast | CPT/HCPCS: 76642; 77062; 77066 ==

== ENCOUNTER 2023-10-05 10:43 | Outpatient (AMB) | payer OTHER, SELFPAY ==
[2023-10-05 10:56] VITALS: BP 114/80; PULSE 83; O2SAT 98; BMI 30.6
--- NOTE | 2023-10-05 10:56 | MHC.PC.OV ---
Vital Signs 10/05/23 10:56 Height 5 ft 3 in Weight 173 lb BMI 30.6 BP 114/80 Blood Pressure Location Lt brachial Position Sitting Pulse 83 Pulse Source Pulse Oximeter Pulse Oximetry (%) 98 Oxygen Delivery Method Room Air Intake Visit Reasons: 3 month f/u Intake Note: Patient here for a 3 month follow up Production Expert Required: No Accompanied by: Spouse Allergies No Known Allergies Allergy (Verified 10/05/23 10:57) Tobacco use date assessed: 05/24/23 Dental Screening Dental Screen Date: 10/05/23 Did you have a dental visit in the last 12 months?: Yes Did you have a dental problem in the last 6 months where you did not have access to dental care?: No Was dental information given to patient?: Patient has dentist HPI 3 month f/u HPI Details 33-year-old female presents to the office for a follow-up visit. She is accompanied by her . She is doing reasonably well and able to function and do all activities of daily living. She did speak to a therapist and it was helpful. She is also managing the grocery along with her . She is found new friends who share common interests. Has started to exercise. [facility] Medical History Fullness of breast Breast pain, right Simple ovarian cyst Other obesity due to excess calories Obesity (BMI 30.0-34.9) Plantar fasciitis Abdominal pain Dysfunctional uterine bleeding Surgical History History of rectal abscess Family History Father No problems noted. Mother Breast lump Sister No problems noted. 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 Vijay Trevino, Doris Zhou, Nikko Lyon and colleagues, with an educational geno from [employer]. Physical exam (Primary Care) Vital Signs: Last Vital Signs Pulse 83 10/05/23 10:56 BP 114/80 10/05/23 10:56 Pulse Ox 98 10/05/23 10:56 Oxygen Delivery Method Room Air 10/05/23 10:56 BMI result Body Mass Index 30.6 Tobacco/Smoking Status: Tobacco use Status Tobacco use date assessed 05/24/23 10/05/23 10:59 Patient Tobacco Use Status Never used Tobacco 10/05/23 10:59 e-Cigarette/Vaping Use Never Used 10/05/23 10:59 Thrive Assessment: Date of Thrive Assessment Date Thrive assessed 05/24/23 10/05/23 10:59 Const General: cooperative and healthy appearing Nutritional Appearance: well nourished Orientation/consciousness: patient oriented x3 Limitations: no limitations HENMT Head: Yes normal to inspection Eyes General: appearance normal, both eyes and all related structures Neck Neck: Yes normal visual inspection Chest Chest palpation & inspection: normal palpation of entire chest wall Resp Effort & Inspection: normal respiratory effort Neuro General: patient oriented x3 Office Procedures Flu Questionnaire Does the patient have a severe egg allergy?: No Immunizations flu vacc [id number] 6mos up(PF) 60 mcg(15 mcgx4)/0.5 mL IM syringe Performing Provider: Felix Ceron MD [facility] Documented (not given) by: BEATRIZ Sherman on 10/05/23 10:59 Reason Not Given: Patient Refused Assessment and Plan Assessment & Plan (1) Generalized anxiety disorder: Code(s): F41.1 - Generalized anxiety disorder Plan: This condition is stable. No medications are needed. Orders: Orders Influenza [id number] Immunization 10/05/23 Z23 - Encounter for immunization Coding Level of Care Code Est Pt Level 3 (83668) Diagnoses Generalized anxiety disorder F41.1
== END 2023-10-05 12:37 | disposition home or self-care (01) ==
PROVIDERS: PCP Internal Medicine; Visit Provider Internal Medicine
DX: F41.1 Generalized anxiety disorder (principal)
CPT/HCPCS: 99213

== ENCOUNTER 2023-10-05 11:37 | Outpatient (REF) | payer OTHER, SELFPAY ==
--- NOTE | ~2023-10-05 | US_ITS ---
EXAMINATION: US PELVIS COMPLETE CLINICAL INFORMATION: Ovarian cyst COMPARISON: Pelvic ultrasound 03/15/2023 TECHNIQUE: Transabdominal and transvaginal imaging was performed. FINDINGS: The uterus is of normal size and echogenicity measuring 8.2 x 4.6 x 5.8 cm. The endometrium measures 1.4 cm in thickness with a suspected 1.5 cm endometrial polyp with a a feeding vessel, increased in size previously 0.8 cm. Nabothian cysts in the cervix. The right ovary measures 3.7 x 2.0 x 3.1 cm for a volume of 12.0 mL and is unremarkable in appearance. The left measures 7.5 x 4.7 x 5.2 cm for a volume of 96 mL. The left ovary is remarkable for a 6.5 x 4.2 x 4.6 cm unilocular simple ovarian cyst, previously 4.8 x 5.2 x 6.5 cm, not increased in size.. There is trace simple physiologic volume pelvic free fluid. US/US pelvic and transvaginal IMPRESSION: 6.5 cm almost certainly benign simple ovarian cyst, not increased in size. Recommend annual follow-up ultrasound. A 1.5 cm endometrial polyp is increased in size from prior recommend gynecologic evaluation and management.
== END 2023-10-05 11:38 | disposition home or self-care (01) ==
LOC: HO.US 11:37
PROVIDERS: PCP Internal Medicine; Visit Provider Obstetrics & Gynecology
DX: N83.209 Unspecified ovarian cyst, unspecified side (principal)
CPT/HCPCS: 76830; 76856

== ENCOUNTER 2023-11-14 14:22 | Outpatient (AMB) | payer OTHER, SELFPAY ==
[2023-11-14 14:34] VITALS: BP 110/70; BMI 32.2
--- NOTE | 2023-11-14 14:34 | MHC.OFFVIS ---
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 She reports the pain has resolved she has other concerns: unable to conceive in the last 4 years menses are regular. She is currently taking her vitamins. She admits to struggling with weight loss and is exploring options is interested in nutritional counseling. She declines a breast exam today. REPLACED BY [facility] Medical History Fullness of breast Breast pain, right Simple ovarian cyst Other obesity due to excess calories Obesity (BMI 30.0-34.9) Plantar fasciitis Abdominal pain Dysfunctional uterine bleeding Surgical History History of rectal abscess Family History Father No problems noted. Mother Breast lump Sister No problems noted. 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 occupational exposures/hazards: No Gender identity: Female Cognitive needs: No Hearing needs: No Vision needs: Yes Female Reproductive History Menstrual Age of Menarche: 12 Date of last menstrual period: 11/11/23 control method: none Total pregnancies: 2 Ab spontaneous: 2 Review of Systems Const All systems reviewed & are unremarkable except as noted in HPI and below Endo Reports no additional complaints Physical Exam Vital Signs: Last Vital Signs BP 110/70 11/14/23 14:34 BMI result Body Mass Index 32.2 Const General: cooperative, healthy appearing and no acute distress Psych Appearance: well kempt Attitude: cooperative Thought process: Normal thought process present Results Reviewed Results Reviewed: [facility] [address] [place] [address] Mammography Report Signed Patient: Nicolas Haynes MR#: [id number] : 1990 Acct:[id number] Age/Sex: 33 / F ADM Date: 08/18/23 Loc: HO.MAMMO Attending Dr: Felix Ceron MD Ordering Physician: Felix Ceron MD Results: 1Negative Date of Service: 08/18/23 Follow Up: 1 Year From Original Mammogram Procedure(s): MM tomosynthesis diagnostic BI Accession Number(s): [id number] cc: Felix Ceron MD~ EXAMINATION: MM DIAGNOSTIC DIGITAL BREAST TOMOSYNTHESIS, BILATERAL US BREAST LIMITED, RIGHT MAMMOGRAPHY: CLINICAL INFORMATION: 33-year-old female complaining of superior right breast pain. COMPARISON: Mammography: None. Baseline exam. TECHNIQUE: Digital breast tomosynthesis is performed in both the craniocaudal and mediolateral oblique views along with computer-aided detection (CAD). Synthesized 2D images are generated from the tomosynthesis. FINDINGS: The breasts are heterogeneously dense, which may obscure small masses (ACR BI-RADS breast composition Category c). There are no suspicious masses, suspicious grouped calcifications, or areas of architectural distortion in either breast. The parenchymal pattern is stable from prior exams. No mammographic abnormality is evident in the superior right breast to account for the patient's 12:00 right breast pain. No skin or axillary abnormalities are identified. ULTRASOUND: CLINICAL INFORMATION: 33-year-old female complaining of superior right breast pain. COMPARISON: None TECHNIQUE: Targeted sonographic evaluation was performed using a high frequency linear transducer. Examination was tailored to evaluate the superior right breast in the region of pain. Selected archived documentation. FINDINGS: RIGHT BREAST: There is a mixture of fatty and fibroglandular tissue. No suspicious mass is seen. There is no pathologic acoustic shadowing. There is no axillary adenopathy. There is no ultrasonographic abnormality in the region of right breast pain. MM/MM tomosynthesis diagnostic BI IMPRESSION: There are no findings suspicious for malignancy in either breast. No mammographic or ultrasonographic correlate to the complaint of superior right breast pain. Recommend clinical management. Otherwise, recommend resuming annual screening mammography at age 40. OVERALL ASSESSMENT: Mammography: BI-RADS 1 - Negative Ultrasound: BI-RADS 1 - Negative RECOMMENDATION: 1. Patient should be managed based on the clinical impression. 2. Otherwise, routine annual screening mammography at age 40.. Results were provided to the patient at time of visit by the technologist. Dictated By: Harrison Cannon MD Signed By: <Electronically signed by Harrison Cannon MD in OV> 08/18/23 1529 DD/ 151 TD/TT: Collections Analyst: Assessment & Plan Assessment & Plan (1) Encounter to discuss test results: Code(s): Z71.2 - Person consulting for explanation of examination or test findings Plan Discuss: Causes for breast pain. Reviewed ultrasound and breast mammogram findings which were both negative. Discussed infertility causative factors including weight. Encouraged and Mediterranean diet and regular exercise. May try apps for her phone in example fitness [employer]. She plans to speak with her primary care for referral. She is asking for her results on her pelvic ultrasound in is aware that she has a left ovarian cyst at 6.5 cm the report indicates that is stable. I counseled her today about ovarian torsion symptoms and when to seek immediate care in the emergency room. Also the findings of an endometrial polyp. Website pictures reviewed in description of what a polyp is. Advised to follow-up with Dr. Rayumndo as she will be needing a hysteroscopy for removal. All of her questions and concerns were addressed to the best of my ability and shared decision making. She is agreeable to the plan of care. Return to the office p.r.n. /annual exam Coding Level of Care Code Est Pt Level 3 (50944) Diagnoses Encounter to discuss test results Z71.2
== END 2023-11-14 15:17 | disposition home or self-care (01) ==
LOC: HO.HWS 14:22
PROVIDERS: PCP Internal Medicine; Visit Provider Advanced Practice Midwife
DX: Z71.2 Person consulting for explanation of examination or test findings (principal)
CPT/HCPCS: 99213

== ENCOUNTER → 2023-11-14 14:22 | Outpatient (BNVA) | payer OTHER, SELFPAY | PROVIDERS: PCP Internal Medicine; Visit Provider Advanced Practice Midwife | DX: Z71.2 Person consulting for explanation of examination or test findings (principal) | CPT/HCPCS: 99212 ==

== ENCOUNTER 2023-11-16 15:03 | Outpatient (AMB) | payer OTHER, SELFPAY ==
--- NOTE | 2023-11-16 15:07 | MHC.OFFVIS ---
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 No complaints . Pelvic ultrasound showed the following: The uterus is of normal size and echogenicity measuring 8.2 x 4.6 x 5.8 cm. The endometrium measures 1.4 cm in thickness with a suspected 1.5 cm endometrial polyp with a a feeding vessel, increased in size previously 0.8 cm. Nabothian cysts in the cervix. The right ovary measures 3.7 x 2.0 x 3.1 cm for a volume of 12.0 mL and is unremarkable in appearance. The left measures 7.5 x 4.7 x 5.2 cm for a volume of 96 mL. The left ovary is remarkable for a 6.5 x 4.2 x 4.6 cm unilocular simple ovarian cyst, previously 4.8 x 5.2 x 6.5 cm, not increased in size.. There is trace simple physiologic volume pelvic free fluid. [facility] Medical History Fullness of breast Breast pain, right Simple ovarian cyst Other obesity due to excess calories Obesity (BMI 30.0-34.9) Plantar fasciitis Abdominal pain Dysfunctional uterine bleeding Surgical History History of rectal abscess Family History Father No problems noted. Mother Breast lump Sister No problems noted. 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 occupational exposures/hazards: No Gender identity: Female Cognitive needs: No Hearing needs: No Vision needs: Yes Female Reproductive History Menstrual Age of Menarche: 12 Date of last menstrual period: 09/03/20 Total pregnancies: 2 Full term: 2 Review of Systems Card Reports as per HPI and Reports no additional complaints Resp Reports as per HPI and Reports no additional complaints GI Reports as per HPI and Reports no additional complaints Reports as per HPI Physical Exam Const General: cooperative, healthy appearing and comfortable Chest Chest palpation & inspection: normal inspection of the chest and normal palpation of entire chest wall Breast/axilla inspection: normal inspection of the breasts and normal inspection of the axillae Breast/axilla palpation: normal palpation of the breasts, normal palpation of the axillae and no axillary lymphadenopathy Resp Effort & Inspection: normal respiratory effort Auscultation: clear to auscultation bilaterally Percussion: percussion normal Cardio Palpation: normal PMI Rate: regular rate Rhythm: regular rhythm Heart sounds: no murmurs and no rubs Peripheral pulses: Peripheral pulses 2+ throughout GI Inspection: Yes normal to inspection Palpation (GI): Soft to palpation, nontender, no guarding, not rigid and No hepatosplenomegaly present Percussion: Yes normal to percussion Auscultation: normal bowel sounds Rectal Exam - Female: deferred Assessment & Plan Assessment & Plan (1) Simple ovarian cyst: Comment: left, stable Code(s): N83.209 - Unspecified ovarian cyst, unspecified side Plan: Discussed with the patient the results the ultrasound showing a stable in size simple ovarian cyst , will order CA 125 if within normal , will follow-up with repeat ultrasound within 12 months. Signs and symptoms of ovarian torsion and or rupture were given to the patient. Instructions given to call or go to emergency room in case of CV abdominal/pelvic pain, nausea or vomiting, otherwise to schedule a follow-up ultrasound appointment within 12 months (2) Endometrial polyp: Code(s): N84.0 - Polyp of corpus uteri Plan: Discussed with the patient the finding of endometrial polyp on pelvic ultrasound, recommended hysteroscopy D&C possible polypectomy myomectomy. Discussed with the patient the procedure , all benefits and risks including but not limited to inability to complete the procedure , insufficient endometrial tissue for a complete evaluation of the endometrial cavity , bleeding, infection, possible need for blood transfusion with all its risk ( HIV,syphilis, Hepatitis, anaphylaxis shock, others..), injury to bladder, rectum, possible need for laparoscopy/laparotomy or hysterectomy. The patient verbalized understanding and signed the consent. Instructions given the patient to schedule a 2 week postoperative appointment Orders: Orders CA-125 Today N83.209 - Unspecified ovarian cyst, unspecified side US pelvic and transvaginal 364 Days N83.209 - Unspecified ovarian cyst, unspecified side Coding Level of Care Code Est Pt Level 3 (62572) Diagnoses Simple ovarian cyst N83.209 Endometrial polyp N84.0
[2023-11-16 15:11] VITALS: BP 118/72; BMI 32.0
== END 2023-11-16 15:39 | disposition home or self-care (01) ==
LOC: HO.HWS 15:03
PROVIDERS: PCP Internal Medicine; Visit Provider Obstetrics & Gynecology
DX: N83.209 Unspecified ovarian cyst, unspecified side (principal); N84.0 Polyp of corpus uteri
CPT/HCPCS: 99213

== ENCOUNTER 2023-11-16 15:03 | Outpatient (REF) | payer OTHER, SELFPAY ==
[2023-11-18 12:04] LABS: CA-125 12 U/mL (<35)
== END 2023-11-16 15:04 | disposition home or self-care (01) ==
LOC: HO.LAB 15:03
PROVIDERS: PCP Internal Medicine; Visit Provider Obstetrics & Gynecology
DX: N83.202 Unspecified ovarian cyst, left side (principal); N84.0 Polyp of corpus uteri
CPT/HCPCS: 36415; 86304; 99212

== ENCOUNTER 2023-11-24 11:21 | Day surgery (SDC) | payer OTHER, SELFPAY ==
--- NOTE | 2023-11-22 10:46 | HO.ANESPROP2 ---
Documented by User: Cori Stone NP 11/22/23 10:48 HPI - Anesthesia Eval Consult details Narrative: 33yo F for D&C Hysteroscopy,poss myomectomy,poss polypectomy PMFSH Active Problems Active Problems: All Active Problems (Updated 11/16/23 @ 15:14 by Felipe Raymundo MD) Endometrial polyp (Acute) Fullness of breast (Acute) Breast pain, right (Acute) Hypercholesterolemia (Acute) Dyspareunia in female (Acute) Pelvic pain in female (Acute) Simple ovarian cyst (Acute) Encounter to discuss test results (Acute) Abnormal ultrasound of endometrium (Acute) Ovarian cyst (Acute) Abdominal pain (Acute) Generalized anxiety disorder (Acute) Diarrhea (Acute) Fever (Acute) Other obesity due to excess calories (Acute) Obesity (BMI 30.0-34.9) (Acute) Plantar fasciitis (Acute) Annual physical exam (Acute) Abdominal pain (Acute) Dysfunctional uterine bleeding (Acute) Past Medical History Medical History Fullness of breast Breast pain, right Simple ovarian cyst Other obesity due to excess calories Obesity (BMI 30.0-34.9) Plantar fasciitis Abdominal pain Dysfunctional uterine bleeding Family History Family History Father No problems noted. Mother Breast lump Sister No problems noted. 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/hazards: No Gender identity: Female Cognitive needs: No Hearing needs: No Vision needs: Yes Meds Allergies Allergy/AdvReac Type Severity Reaction Status Date / Time No Known Allergies Allergy Verified 11/24/23 12:46 Exam Pertinent Lab Results Pertinent Lab Results: Laboratory Tests 05/24/23 10:00 WBC 7.3 Hgb 13.4 Hct 42.0 Plt Count 240 Sodium 138 Potassium 4.0 Chloride 107 Carbon Dioxide 24 BUN 7 L Creatinine 0.69 Assessment and Plan Assessment Anesthesia Assessment: Chart Reviewed Documented by User: Mino Ward MD 11/24/23 14:29 PMFSH Past Medical History Medical History Fullness of breast Breast pain, right Simple ovarian cyst Other obesity due to excess calories Obesity (BMI 30.0-34.9) Plantar fasciitis Abdominal pain Dysfunctional uterine bleeding Family History Family History Father No problems noted. Mother Breast lump Sister No problems noted. Family history of problems with anesthesia: No Surgical History Surgical History History of rectal abscess History of Problems with Anesthesia: No Social History Social History Household Members: Spouse Housing: House Alcohol intake: current Alcohol intake frequency: holidays/special occasions only Patient Tobacco Use Status: Never used Tobacco e-Cigarette/Vaping Use: Never Used Second Hand Smoke Exposure: No Use of substances other than those prescribed or required for medical reasons: No Are you DNR?: No Advance Directives: No Advance Directives Information Provided: Yes service: No Current occupational status: employed 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 occupational 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/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: No Gender identity: Female Cognitive needs: No Hearing needs: No Vision needs: Yes Meds Allergies Allergy/AdvReac Type Severity Reaction Status Date / Time No Known Allergies Allergy Verified 11/24/23 12:46 Exam Airway Mallampati Class: II TM Dist: >3cm Neck ROM: Full Loose/Missing/Broken Teeth: No Heart: ok Lungs: ok Assessment and Plan Assessment Anesthesia Assessment: Anesthesia Plan Discussed Final Anesthetic Review Family History of Problems with Anesthesia: No History of Problems with Anesthesia: No NPO: Yes ASA Class: II Final Preanesthetic Review: No Changes in Pt Med Stat, Meds/Allgs Chart Reviewed, Consent Obtained/Reviewed and Anes Risks/Benef Reviewed Patient Risk: Low Procedure Risk: Low Anesthetic Plan Anesthetic Plan: GA and Agree w/ Assess. and Plan Disposition: Standard PACU
[2023-11-24 12:44] VITALS: BMI 32.6
[2023-11-24 13:10] LABS: UPreg QC Valid YES; Urine Pregnancy NEGATIVE (NEGATIVE)
[2023-11-24 13:15] VITALS: BP 113/56; PULSE 68; RESP 20; TEMP 36.9; O2SAT 100
[2023-11-24] MEDS: Lactated Ringers 1,000 ML 100 ML IVCONT (13:17)
--- NOTE | 2023-11-24 13:47 | MHC.SHP ---
Pre-Procedural Eval Section A Date of Service: 11/24/23 The patient is an INPATIENT: No Changes since office visit: No Cold of Flu in the past 2 weeks, No New Medical Problems, No Changes in Medication and No Patient answered all questions The History & Physical has been completed within 30 days and I have reviewed it.: Yes Section B Chief Complaint: Polyp of corpus uteri Allergies: Allergies Allergy/AdvReac Type Severity Reaction Status Date / Time No Known Allergies Allergy Verified 11/24/23 12:46 Plan Diagnosis/Plan: Unchanged I have reviewed the history and physical and performed a pertinent physical examination on my patient. No changes have occurred unless specified. Time Spent With Patient Time: Total time managing care of this patient today ____ minutes.
--- NOTE | 2023-11-24 14:38 | PM.OP ---
Brief Operative Note Date of Service: 11/24/23 Pre-op diagnosis: Endometrial polyp by ultrasound Post-op diagnosis: same (Endometrial polyp) Procedure: Hysteroscopy D&C, Polypectomy Surgeon: Felipe Raymundo MD Anesthesia: GLMA Was an Performance Test Architect used for this Procedure?: No Estimated blood loss (mL): 0 Pathology: other (Endometrial Scrapping. Polyp) Condition: stable Disposition: PACU
--- NOTE | 2023-11-24 14:39 | P.OP_ITS ---
Operative Note Operative Note Date of Service: 11/24/23 Narrative: Preop Diagnosis: Endometrial polyp by US Operation: Diagnostic Hysteroscopy, Dilataion & Curettage and polypectomy Post Op Diagnosis: Endometrial Polyp QBL: Minimal Anesthesia: GLMA Surgeon: Felipe Raymundo MD Building Construction Contractor: None Complication: None Pathology: Endometrial Scrapings, Endometrial polyp Procedure: The patient was put in the dorsal lithotomy position, scrubbed, and draped in the usual manner. A sterile speculum was inserted in the patient's vagina. The anterior lip of the cervix was grasped with a single tooth tenaculum. The cervix was dilated up to 5 mm, then the scope was inserted in the patient's uterus. Inspection revealed endometrial polyp. The Myosure Reach device was used; it was introduced through the operative channel and polypectomy done with no complications. The scope was then taken out from the uterine cavity, sharp curettings was carried on with minimal to moderate amount of tissues retrieved. At the end of the procedure, all instruments were taken out of the patient uterine and vaginal cavity. The single tooth tenaculum was removed and homeostasis was assured using pressure,. The patient tolerated the procedure well and was transferred to the PACU in a stable condition.
[2023-11-24 14:46] VITALS: BP 101/37; PULSE 67; RESP 14; TEMP 36.6; O2SAT 98
[2023-11-24 14:51] VITALS: BP 113/62; PULSE 74; RESP 16; O2SAT 98
[2023-11-24] MEDS: Acetaminophen 325 MG TABLET 650 MG PO (14:53)
[2023-11-24 14:56] VITALS: BP 123/72; PULSE 62; RESP 16; O2SAT 100
[2023-11-24 15:01] VITALS: BP 119/73; PULSE 60; RESP 16; O2SAT 100
[2023-11-24 15:16] VITALS: BP 115/71; PULSE 50; RESP 16; TEMP 36.6; O2SAT 100
== END 2023-11-24 15:36 | disposition home or self-care (01) ==
PROVIDERS: PCP Internal Medicine; Visit Provider Obstetrics & Gynecology
PROC: 0UDB8ZZ Extraction of Endometrium, Via Natural or Artificial Opening Endoscopic (ICD-10-PCS; CPT 58558; principal; 2023-11-24 14:00)
DX: N84.0 Polyp of corpus uteri (principal); E78.00 Pure hypercholesterolemia, unspecified
CPT/HCPCS: 58558; 81025; 88305; J1885; J2405; J2704; J3010

== ENCOUNTER → 2023-11-24 11:21 | Outpatient (BNV) | payer OTHER, SELFPAY | PROVIDERS: PCP Internal Medicine; Visit Provider Obstetrics & Gynecology | DX: N84.0 Polyp of corpus uteri (principal) | CPT/HCPCS: 58558 ==

== ENCOUNTER 2023-11-28 09:10 | Outpatient (AMB) | payer OTHER, SELFPAY ==
--- NOTE | 2023-11-28 09:11 | A.OFFVIS_ITS ---
Intake Intake Visit Reasons: US follow up/DO NOT RS Allergies No Known Allergies Allergy (Verified 11/24/23 12:46) HPI HPI Comments History of Present Illness Details The patient scheduled tele health visit post hysteroscopy D&C/polypectomy, no complaints minimal vaginal bleeding no feverishness chills or abdominal pain. The pathology showed the following: A. Endometrium, curettage: Proliferative endometrium; no atypia or hyperplasia identified. B. Endometrium, polypectomy: Fragments of endometrial polyp; proliferative endometrium; no atypia identified [facility] Medical History Fullness of breast Breast pain, right Simple ovarian cyst Other obesity due to excess calories Obesity (BMI 30.0-34.9) Plantar fasciitis Abdominal pain Dysfunctional uterine bleeding Surgical History History of rectal abscess Family History Father No problems noted. Mother Breast lump Sister No problems noted. 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 I spent a total of 20 minutes reviewing the chart, talking to the patient via video and documenting in the medical record. Telehealth Telehealth Location of provider rendering services: practice address Location of patient: address on file Patient Identification confirmed using: Name, : Yes Telehealth method: video Patient verbally consented to treatment: Yes Patient verbally consented to billing insurance company: Yes Patient informed of any privacy concerns related to visit: Yes Coding Level of Care Code Tele Est Pt Level 3 (59906) Diagnoses Endometrial polyp N84.0
== END 2023-11-28 10:22 | disposition home or self-care (01) ==
LOC: HO.HWS 09:10
PROVIDERS: PCP Internal Medicine; Visit Provider Obstetrics & Gynecology
DX: N84.0 Polyp of corpus uteri (principal)
CPT/HCPCS: 99213

== ENCOUNTER → 2023-11-28 09:10 | Outpatient (BNVA) | payer OTHER, SELFPAY | PROVIDERS: PCP Internal Medicine; Visit Provider Obstetrics & Gynecology ==

== ENCOUNTER 2024-04-23 10:37 | Outpatient (AMB) | payer OTHER, SELFPAY ==
[2024-04-23 10:38] VITALS: BP 112/76; BMI 32.5
--- NOTE | 2024-04-23 10:38 | A.OFFVIS_ITS ---
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 Pt is questioning fertility issues. Allergies No Known Allergies Allergy (Verified 04/23/24 10:40) Is last menstrual period known: Yes Last menstrual period: 04/05/24 HPI Comments Details: She is a premenopausal woman presenting for annual examination. Doing well with concerns: unable to conceive since last year. She tries to eat healthy, not able to lose weight and stays active with exercise walking. Regular monthly menses. Currently is sexually active. She denies vaginal itching and irritation. STI screening offered; she declines. Denies family history of breast, ovarian or colon cancer. Last pap smear 2022, negative. [facility] Medical History Fullness of breast Breast pain, right Simple ovarian cyst Other obesity due to excess calories Obesity (BMI 30.0-34.9) Plantar fasciitis Abdominal pain Dysfunctional uterine bleeding Surgical History History of rectal abscess Family History Father No problems noted. Mother Breast lump Sister No problems noted. 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 occupational exposures/hazards: No Gender identity: Female Cognitive needs: No Hearing needs: No Vision needs: Yes Female Reproductive History Menstrual Age of Menarche: 12 Duration of menses: 3-5 days Date of last menstrual period: 04/05/24 control method: none Total pregnancies: 2 Ab spontaneous: 2 Date of last pap smear: 03/03/23 History of abnormal pap smear: No History of STI: No Review of Systems Const All systems reviewed & are unremarkable except as noted in HPI and below Reports as per HPI Eyes Reports no additional complaints ENT Reports no additional complaints Card Reports no additional complaints Resp Reports no additional complaints GI Reports as per HPI and Reports no additional complaints Reports as per HPI Musc Reports no additional complaints Skin/Breast Reports as per HPI Neuro Reports no additional complaints Psych Reports no additional complaints Endo Reports no additional complaints Con/Lymph Reports no additional complaints Aller/Immun Reports no additional complaints Physical Exam Vital Signs: Last Vital Signs BP 112/76 04/23/24 10:38 BMI result Body Mass Index 32.5 Const General: cooperative, healthy appearing, no acute distress, well developed and alert Orientation/consciousness: patient oriented x3 HEENT Head: Yes normal to inspection Eyes General: appearance normal, both eyes and all related structures Neck Neck: Yes normal visual inspection Thyroid: Thyroid normal Chest Chest palpation & inspection: normal inspection of the chest and other (no puckering, dimpling, peau de orange, retraction, discharge, masses) Breast/axilla inspection: normal inspection of the breasts Breast/axilla palpation: normal palpation of the breasts Resp Effort & Inspection: normal respiratory effort GI Inspection: Yes normal to inspection Palpation (GI): Soft to palpation Rectal Exam - Female: deferred General: Yes bladder normal to palpation External Female Exam: normal external appearance and normal appearance of the urethra Speculum Exam - Vagina: normal appearance of the vagina, normal palpation and normal vaginal discharge Speculum Exam - Cervix: normal appearance of the cervix and normal palpation Bimanual exam- vagina & uterus: normal bimanual exam, normal palpation, uterine size normal, bladder normal to palpation, normal palpation and non-tender Bimanual Exam- Adnexa, other: no masses Skin General skin exam: no rashes or lesions noted Rashes: no rashes Neuro General: patient oriented x3 Cognition (Neuro): normal cognition Extrem General: Yes normal to inspection Psych Attitude: cooperative Thought process: Normal thought process present Assessment & Plan Assessment & Plan (1) Encounter for well woman exam with routine gynecological exam: Code(s): Z01.419 - Encounter for gynecological examination (general) (routine) without abnormal findings Category: Medical Plan Discussed: Current recommendations for pap smears per ASCCP guidelines. Breast awareness and periodic breast exams. Maintain a healthy lifestyle including a well balanced diet (Mediterranean) and routine exercise. Discussed with PCP weight management techniques /options. vitamins with folic acid. Discussed infertility referral, she will check with her insurance company for coverage and who is on her plan and call the office for a referral if needed. Patient verbalizes understanding and agrees to the plan of care. She was given opportunity to ask questions and all questions were answered to the best of my ability. RTO in one year for annual numerical tool programmer examination. This note is constructed using voice recognition software. While every effort has been made to ensure accuracy, electromedical equipment technician errors may have been included. Medications: New PNV,calcium 95-tkzs-sdpyd acid 27 mg iron- 1 mg ( Vitamins Plus Low Iron) 1 tab PO DAILY 90 tabs 4RF Coding Level of Care Code Est Pt Prev Care 18-39y(95124) Diagnoses Encounter for well woman exam with routine gynecological exam Z01.419
== END 2024-04-23 11:08 | disposition home or self-care (01) ==
PROVIDERS: PCP Internal Medicine; Visit Provider Advanced Practice Midwife
DX: Z01.419 Encounter for gynecological examination (general) (routine) without abnormal findings (principal)
CPT/HCPCS: 99395

== ENCOUNTER → 2024-04-23 10:37 | Outpatient (BNVA) | payer OTHER, SELFPAY | PROVIDERS: PCP Internal Medicine; Visit Provider Advanced Practice Midwife | DX: Z01.419 Encounter for gynecological examination (general) (routine) without abnormal findings (principal) | CPT/HCPCS: 99395 ==

== ENCOUNTER 2024-05-30 08:44 | Outpatient (AMB) | payer OTHER, SELFPAY ==
--- NOTE | 2024-05-30 08:53 | MHC.PC.OV ---
Vital Signs 05/30/24 08:55 Height 5 ft 3 in Weight 185 lb 4 oz BMI 32.8 BP 108/62 Blood Pressure Location Lt brachial Position Sitting Pulse 77 Pulse Source Pulse Oximeter Pulse Oximetry (%) 96 Oxygen Delivery Method Room Air Intake Visit Reasons: PE Intake Note: Patient is here today for a physical. Information Lead Required: No Gis Application Developer: Present Accompanied by: Spouse Allergies No Known Allergies Allergy (Verified 06/03/24 16:32) Medication List - Last Reconciled 06/03/24 by Felix Ceron MD PNV,calcium 83-peuq-fpaqx acid 27 mg iron- 1 mg ( Vitamins Plus Low Iron) 1 tab PO DAILY Tobacco use date assessed: 05/30/24 Dental Screening Dental Screen Date: 05/30/24 Did you have a dental visit in the last 12 months?: Yes Did you have a dental problem in the last 6 months where you did not have access to dental care?: No Was dental information given to patient?: Patient has dentist [facility] Medical History Fullness of breast Breast pain, right Simple ovarian cyst Other obesity due to excess calories Obesity (BMI 30.0-34.9) Plantar fasciitis Abdominal pain Dysfunctional uterine bleeding Surgical History History of rectal abscess Family History Father No problems noted. Mother Breast lump Sister No problems noted. 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 1. Little interest or pleasure in doing things: not at all 2. Feeling down, depressed, or hopeless: not at all 3. Trouble falling or staying asleep, or sleeping too much: not at all 4. Feeling tired or having little energy: not at all 5. Poor appetite or overeating: not at all 6. Feeling bad about yourself - or that you are a failure or have let yourself or your family down: not at all 7. Trouble concentrating on things, such as reading the newspaper or watching television: not at all 8. Moving or speaking so slowly that other people could have noticed. Or the opposite - being so fidgety or restless that you have been moving around a lot more than usual: not at all 9. Thoughts that you would be better off or of hurting yourself in some way: not at all Total score: 0 Depression Screening Interpretation: Negative Depression Screening Done: Yes Source: Developed by Drs. Vijay Trevino, Doris Zhou, Nikko Lyon and colleagues, with an educational geno from [employer]. Thrive Questionnaire Date Thrive assessed: 05/30/24 I am a: Patient What is your living situation today?: I have a steady place to live Within the past 12 months, did the food you bought not last and you didn't have the money to get more?: Never true Within the past 12 months, did you worry whether your food would run out before you got money to buy more?: Never true Do you have trouble paying for medicines?: No Do you have trouble getting transportation to medical appointments?: No Do you have trouble paying your heating and electricity bill?: No Do you have trouble taking care of your child, family member or friend?: No Do you have trouble with day-to-day activities such as bathing, preparing meals, shopping, managing finances, etc.?: No Are you currently unemployed and looking for a job?: No Are you interested in more education?: No Currently or been in a relationship where the following occur: No concerns reported THRIVE Score: 0 AUDIT C Alcohol Use Questionnaire (AUDIT-C) 1. How often do you have a drink containing alcohol?: Monthly or less 2. How many drinks containing alcohol do you have on a typical day when you are drinking?: 1 or 2 Total Score: 1 MANN-7 AMB Questionnaire MANN-7 Date MANN - 7 assessed: 05/30/24 Feeling nervous, anxious, or on edge: 1 = Several days (In therapy) Not being able to stop or control worryin = Several days Worrying too much about different things: 1 = Several days Trouble relaxin = Several days Being so restless that it is hard to sit still: 1 = Several days Becoming easily annoyed or irritable: 1 = Several days Feeling afraid as if something awful might happen: 1 = Several days Total MANN-7 score (0-4 normal; 5-9 mild; 10-14 moderate; 15-21 severe): 7 Source: Developed by Drs. Vijay Trevino, Doris Zhou, Nikko Lyon and colleagues, with an educational geno from [employer]. Physical exam (Primary Care) Vital Signs: Last Vital Signs Pulse 77 05/30/24 08:55 BP 108/62 05/30/24 08:55 Pulse Ox 96 05/30/24 08:55 Oxygen Delivery Method Room Air 05/30/24 08:55 BMI result Body Mass Index 32.8 Tobacco/Smoking Status: Tobacco use Status Tobacco use date assessed 05/30/24 05/30/24 08:55 Patient Tobacco Use Status Never used Tobacco 05/30/24 08:55 e-Cigarette/Vaping Use Never Used 05/30/24 08:55 PHQ-9: PHQ-9 Score PHQ-9: Total score 0 05/30/24 08:55 Depression Screening Interpretation: Negative Thrive Assessment: Date of Thrive Assessment Date Thrive assessed 05/30/24 05/30/24 08:55 Currently or been in a relationship where the following occur: No concerns reported Const General: cooperative and healthy appearing Nutritional Appearance: well nourished Orientation/consciousness: patient oriented x3 Limitations: no limitations HENMT Head: Yes normal to inspection Eyes General: appearance normal, both eyes and all related structures Neck Neck: Yes normal visual inspection Chest Chest palpation & inspection: normal palpation of entire chest wall Resp Effort & Inspection: normal respiratory effort Neuro General: patient oriented x3 Assessment and Plan Assessment & Plan (1) Annual physical exam: Code(s): Z00. - Encounter for general adult medical examination without abnormal findings Plan: Blood work ordered. Weight management referral placed. Orders: Referrals Medical Weight Management Referral Z00.00 - Encounter for general adult medical examination without abnormal findings Coding Level of Care Code Est Pt Prev Care 18-39y(14710) Diagnoses Annual physical exam Z00.00
[2024-05-30 08:55] VITALS: BP 108/62; PULSE 77; O2SAT 96; BMI 32.8
== END 2024-05-30 13:00 | disposition home or self-care (01) ==
PROVIDERS: PCP Internal Medicine; Visit Provider Internal Medicine
DX: Z00.00 Encounter for general adult medical examination without abnormal findings (principal)
CPT/HCPCS: 99395

== ENCOUNTER 2024-09-04 09:21 | Outpatient (AMB) | payer OTHER, SELFPAY ==
[2024-09-04 09:21] VITALS: BP 132/76; PULSE 81; BMI 32.6
--- NOTE | 2024-09-04 09:21 | MHC.OFFVIS ---
Vital Signs 09/04/24 09:21 Height 5 ft 3 in Weight 184 lb BMI 32.6 BP 132/76 Blood Pressure Location Rt brachial Position Sitting Pulse 81 Intake Visit Reasons: hypertrophic disorders of the skin Intake Note: This patient presents for hypertrophic disorder of the skin. Pt c/o: reports no complaints. Professional Nursing Tutor Required: No Accompanied by: Spouse Allergies No Known Allergies Allergy (Verified 09/04/24 09:28) Medication List - Last Reconciled 09/04/24 by Parker Campa MD PNV,calcium 91-ycof-lblck acid 27 mg iron- 1 mg ( Vitamins Plus Low Iron) 1 tab PO DAILY HPI HPI hypertrophic disorders of the skin: Details: [age] year old female referred for a skin lesion. She says that she has noticed this for several months. She therefore wants this removed. She denies any other complaints. The only other issue she brought up was that she and her are trying to get for about 3 months now and they are interested in a fertility doctor. [facility] Medical History (Updated 09/04/24 @ 09:49 by Parker Campa MD) Skin lesion of cheek Fullness of breast Breast pain, right Simple ovarian cyst Other obesity due to excess calories Obesity (BMI 30.0-34.9) Plantar fasciitis Abdominal pain Dysfunctional uterine bleeding Surgical History History of rectal abscess Family History Father No problems noted. Mother Breast lump Sister No problems noted. 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 occupational exposures/hazards: No Gender identity: Female Cognitive needs: No Hearing needs: No Vision needs: Yes Female Reproductive History Menstrual Age of Menarche: 12 Review of Systems Const Denies chills and Denies fever(s) Card Denies chest pain, Denies dyspnea and Denies dyspnea on exertion Resp Denies cough, Denies dyspnea and Denies dyspnea on exertion GI Denies hematochezia and Denies change in bowel habits Denies hematuria Musc Denies back pain and Denies limited range of motion Neuro Denies focal weakness and Denies convulsions Psych Denies depression and Denies mood swings Physical Exam Vital Signs: Last Vital Signs Pulse 81 09/04/24 09:21 BP 132/76 09/04/24 09:21 BMI result Body Mass Index 32.6 Const General: comfortable and no acute distress Orientation/consciousness: patient oriented x3 HEENT Other: Left cheek at the preauricular area is note of a skin lesion, well-defined margins, elevated, tented, about 4 mm in size Neck Neck: Yes no lymphadenopathy Resp Auscultation: clear to auscultation bilaterally Cardio Rhythm: regular rhythm GI Palpation (GI): Soft to palpation, nontender and no guarding Neuro General: patient oriented x3 Assessment & Plan Assessment & Plan (1) Skin lesion of cheek: Code(s): L98.9 - Disorder of the skin and subcutaneous tissue, unspecified Category: Medical Plan: She has what appears to be a nevus on the left cheek. She wants to proceed with excision. I explained the technique of excision under local anesthesia. I reviewed the risks, benefits, and alternatives. She wants to proceed. This will be done in the office on her next visit. Coding Level of Care Code New Pt Level 3 (70546) Diagnoses Skin lesion of cheek L98.9
== END 2024-09-04 09:52 | disposition home or self-care (01) ==
LOC: HO.HGS 09:21
PROVIDERS: PCP Internal Medicine; Visit Provider Surgery
DX: L98.9 Disorder of the skin and subcutaneous tissue, unspecified (principal)
CPT/HCPCS: 99203

== ENCOUNTER → 2024-09-04 09:21 | Outpatient (BNVA) | payer OTHER, SELFPAY | PROVIDERS: PCP Internal Medicine; Visit Provider Surgery | DX: L98.9 Disorder of the skin and subcutaneous tissue, unspecified (principal) | CPT/HCPCS: 99202 ==

== ENCOUNTER 2024-09-19 09:06 | Outpatient (AMB) | payer OTHER, SELFPAY ==
--- NOTE | 2024-09-19 09:38 | MHC.OFFVIS ---
Intake Visit Reasons: excision of lesion left cheek Intake Note: Office procedure: excision lesion of left cheek. Natural History Collections Curator Required: No Accompanied by: Spouse Allergies No Known Allergies Allergy (Verified 09/19/24 09:38) HPI HPI excision of lesion left cheek: Details: She is here for excision of a left cheek skin lesion. [facility] Medical History Skin lesion of cheek Fullness of breast Breast pain, right Simple ovarian cyst Other obesity due to excess calories Obesity (BMI 30.0-34.9) Plantar fasciitis Abdominal pain Dysfunctional uterine bleeding Surgical History History of rectal abscess Family History Father No problems noted. Mother Breast lump Sister No problems noted. 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 The lesion was on the left cheek in the preop clear area. This measured about 5 mm, was pigmented and had clear borders. I prepped and draped the area. I infiltrated this with lidocaine 1%. I made an elliptical incision around the lesion with a blade 15 along the Mireya's lines of the skin. This was carried down through the full-thickness of the skin and subcutaneous fat to excise the entire lesion. The incision was closed with full-thickness nylon 5 0 simple interrupted sutures. Steri-Strips were applied and the procedure was completed. She tolerated procedure well. There were no immediate complications. 41138-[id number] face/ear/eyelid/nose/lip/mucous membrane <0.5cm Procedure code (CPT) selection complete Assessment & Plan Assessment & Plan (1) Skin lesion of cheek: Code(s): L98.9 - Disorder of the skin and subcutaneous tissue, unspecified Category: Medical Plan: Excision was done without difficulty. She was given wound care instructions. I will see her for a follow up in about 1 week. Coding Level of Care Code Procedure Only Diagnoses Skin lesion of cheek L98.9 CPT Codes Face/Ear/Eyelid/Nose/Lip/Mucous Membrane - CPT: 66947-[id number] face/ear/eyelid/nose/lip/mucous membrane <0.5cm ([id number])
== END 2024-09-19 10:14 | disposition home or self-care (01) ==
PROVIDERS: PCP Internal Medicine; Visit Provider Surgery
DX: L98.9 Disorder of the skin and subcutaneous tissue, unspecified (principal)
CPT/HCPCS: 11440

== ENCOUNTER 2024-09-19 09:06 | Outpatient (REF) | payer OTHER, SELFPAY | END 2024-09-19 09:07 | disposition home or self-care (01) | LOC: HO.LNP 09:06 | PROVIDERS: PCP Internal Medicine; Visit Provider Surgery | DX: L98.9 Disorder of the skin and subcutaneous tissue, unspecified (principal) | CPT/HCPCS: 11440; 88304; 88305 ==

== ENCOUNTER 2024-09-30 09:27 | Outpatient (AMB) | payer OTHER, SELFPAY ==
--- NOTE | 2024-09-30 09:28 | A.OFFVIS_ITS ---
Intake Visit Reasons: s/p exc skin lesion left cheek (off proc) Intake Note: This patient presents for follow-up assessment status post excision Skin lesion of cheek. Pt c/o; reports no complaints. Trial Consultant Required: No Accompanied by: Spouse Allergies No Known Allergies Allergy (Verified 09/30/24 09:28) HPI HPI s/p exc skin lesion left cheek (off proc): Details: She underwent excision of a skin lesion on the left cheek under local anesthesia last 09/20/2024. She tolerated the procedure well. She currently denies significant complaints. [facility] Medical History Skin lesion of cheek Fullness of breast Breast pain, right Simple ovarian cyst Other obesity due to excess calories Obesity (BMI 30.0-34.9) Plantar fasciitis Abdominal pain Dysfunctional uterine bleeding Surgical History History of surgical removal of skin lesion (~09/19/24) History of rectal abscess Family History Father No problems noted. Mother Breast lump Sister No problems noted. 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 occupational exposures/hazards: No Gender identity: Female Cognitive needs: No Hearing needs: No Vision needs: Yes Female Reproductive History Menstrual Age of Menarche: 12 Review of Systems Const Denies chills and Denies fever(s) Physical Exam Const General: comfortable and no acute distress HEENT Other: Excision site on the left cheek is well healed, not infected Resp Effort & Inspection: normal respiratory effort Assessment & Plan Assessment & Plan (1) Skin lesion of cheek: Code(s): L98.9 - Disorder of the skin and subcutaneous tissue, unspecified Category: Medical Plan: Status post excision. The excision site is well healed. Her sutures were removed. Her path report shows compound nevus. She understands the benign nature of this pathology. She can follow up on a p.r.n. basis. Coding Level of Care Code Global (46523) Diagnoses Skin lesion of cheek L98.9
== END 2024-09-30 09:38 | disposition home or self-care (01) ==
PROVIDERS: PCP Internal Medicine; Visit Provider Surgery
DX: L98.9 Disorder of the skin and subcutaneous tissue, unspecified (principal)
CPT/HCPCS: 99024

== ENCOUNTER → 2024-09-30 09:27 | Outpatient (BNVA) | payer OTHER, SELFPAY | PROVIDERS: PCP Internal Medicine; Visit Provider Surgery | DX: Z09 Encounter for follow-up examination after completed treatment for conditions other than malignant neoplasm (principal); Z87.2 Personal history of diseases of the skin and subcutaneous tissue | CPT/HCPCS: 99212 ==

== ENCOUNTER 2024-12-10 13:12 | Outpatient (REF) | payer OTHER, SELFPAY ==
--- NOTE | ~2024-12-10 | US_ITS ---
EXAMINATION: US PELVIS CLINICAL INFORMATION: Unspecified ovarian cyst. COMPARISON: October 05, 2023 reported a 6.5 cm cyst, left ovary. TECHNIQUE: Ultrasound of the pelvis is performed using both transabdominal and transvaginal transducers along with Doppler. Transvaginal imaging is performed due to inadequate visualization transabdominally. FINDINGS: Uterus: The uterus is anteverted and measures 9 x 5 x 6 cm. Endocervical canal and cervix are normal. The double wall endometrial thickness is 9 mm. The uterus is smooth in contour and has normal myometrial echogenicity. No visible fibroid. Adnexa: Both ovaries are visualized. There is normal color flow to the adnexa. There is no ovarian torsion. There is no pelvic ascites or fluid collection. Right ovary measures 4 x 3 x 4 cm. Volume: 22 cc. There is a 2.6 cm anechoic lesion without flow on color Doppler interrogation. Left ovary measures 7 x 4 x 6 cm. Volume is 48 cc. There is a 6 cm lobulated anechoic lesion without flow on color Doppler interrogation. US/US pelvic and transvaginal IMPRESSION: 6 cm cyst, left ovary. 2.6 cm cyst, right ovary. No ovarian torsion. 9 mm thickened endometrial stripe. Correlated with menstrual cycle. Electronically signed by: Jesus Manuel Sheffield MD 12/11/2024 10:08 AM CAITY
--- OUTSIDE RECORDS SUMMARY | 2024-12-10 13:26 | XMS_ITS | Clinical Summary ---
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 06/23/2017 Perianal fistula 04/09/2017 Social History Tobacco Use Types Packs/Day Years Used Date Smoking Tobacco: Never Smokeless Tobacco: Never Alcohol Use Standard Drinks/Week Comments Yes 0 (1 standard drink = 0.6 oz pur e alcohol) rarely Sex and Gender Information Value Date Recorded Sex Assigned at Not on file Gender Identity Not on file Sexual Orientation Not on file Last Filed Vital Signs Vital Sign Reading Time Taken Comments Blood Pressure 131/95 05/28/2018 4:07 PM EDT Pulse 77 05/28/2018 4:07 PM EDT Temperature 37.1 ??C (98.7 ??F) 03/14/2018 12:30 PM E DT Respiratory Rate 13 03/14/2018 12:45 PM EDT Oxygen Saturation 98% 03/14/2018 1:11 PM EDT Inhaled Oxygen Concentration - - Weight 57.2 kg (126 lb) 05/28/2018 4:07 PM EDT Height 160 cm (5' 3 ) 05/28/2018 4:07 PM EDT Body Mass Index 22.32 05/28/2018 4:07 PM EDT Plan of Treatment Health Maintenance Due Date Last Done Comments Hepatitis B Vaccines (1 of 3 - 3-dose series) 1992 Hepatitis C Screening 1992 COVID-19 Vaccine (#1) 1992 Depression Screening 2004 Preventative Health Evaluation 2010 DTap / Tdap / Td (1 - Tdap) 2011 Cervical Cancer Screening (P ap Smear) 2013 Influenza Vaccine (#1) 2024 Pneumococcal Vaccine Aged Out No long er eligible based on patient's age to complete this topic RSV Ped < 20 months Aged Out No longe r eligible based on patient's age to complete this topic
--- OUTSIDE RECORDS SUMMARY | 2024-12-10 13:26 | XMS_ITS | Clinical Summary ---
Author Organization [facility] Address [address] [place] [phone] Care Team Providers Care Sales Technician Name Role Phone Unavailable Primary Care Provider Unavailabl e Surgical History Surgery Date Site/Laterality Comments RECTAL SURGERY PROCEDURE:RECTAL SURGERY ANAL FISTULOTOMY 03/14/2018 N/A PROCEDURE:ANAL FISTULOTOMY;COMMENT:Procedure: LIFT PROCEDURE; Surgeon: Siani Carlisle MD; Location: [facility] MAIN OPERATING ROOM; Service: Colorectal; Laterality: N/A; EXAMINATION UNDER ANESTHESIA 05/30/2017 N/A PROCEDURE:EXAMINATION UNDER ANESTHESIA;COMMENT:Procedure: EXAM UNDER ANESTHESIA; Surgeon: Sinai Carlisle MD; Location: [facility] MAIN OPERATING ROOM; Service: Colorectal; Laterality: N/A; OTHER SURGICAL HISTORY 05/30/2017 N/A PROCEDURE:TREATMENT FISTULA ANAL;COMMENT:Procedure: PLACEMENT OF SETON; Surgeon: Sinai Carlisle MD; Location: [facility] MAIN OPERATING ROOM; Service: Colorectal; Laterality: N/A; Medical History Medical History Date Comments Perianal fistula DX:Perianal fis maggy Anal fistula DX:Anal fistula Anal fistula DX:Anal fistula Perianal fistula DX:Perianal fis maggy Perianal fistula DX:Perianal fis maggy Social History Tobacco Use Types Packs/Day Years Used Date Smoking Tobacco: Never Smokeless Tobacco: Never Alcohol Use Standard Drinks/Week Comments Yes 0 (1 standard drink = 0.6 oz pur e alcohol) Sex and Gender Information Value Date Recorded Sex Assigned at Not on file Gender Identity Not on file Sexual Orientation Not on file Obstetrics History Plan of Treatment Health Maintenance Due Date Last Done Comments DTaP,Tdap,and Td Vaccines (1 - Tdap) 2011 Hepatitis B Vaccines (1 of 3 - 19+ 3-dose series) 2011 Cervical Cancer Screening: P ap Smear 2013 COVID-19 Vaccine (2023-2 5 season) 2024 Influenza Vaccine (#1) 2024 HIB Vaccines Aged Out No longer eligi ble based on patient's age to complete this topic HPV Vaccines Aged Out No longer eligi ble based on patient's age to complete this topic Hepatitis A Vaccines Aged Out No long er eligible based on patient's age to complete this topic IPV Vaccines Aged Out No longer eligi ble based on patient's age to complete this topic MMR Vaccines Aged Out No longer eligi ble based on patient's age to complete this topic Meningococcal ACWY Vaccine Aged Out N o longer eligible based on patient's age to complete this topic Pneumococcal Vaccine: Pediat rics (0 to 5 Years) and At-Risk Patients (6 to 64 Years) Aged Out No longer eligible b ased on patient's age to complete this topic RSV Immunization Patients Un fatmata 20 months Aged Out No longer eligible b ased on patient's age to complete this topic Varicella Vaccines Aged Out No longer eligible based on patient's age to complete this topic
== END 2024-12-10 13:13 | disposition home or self-care (01) ==
LOC: HO.HMGCX 13:12
PROVIDERS: Absent Provider Advanced Practice Midwife; PCP Internal Medicine; Visit Provider Obstetrics & Gynecology
DX: N83.209 Unspecified ovarian cyst, unspecified side (principal)
CPT/HCPCS: 76830; 76856

== ENCOUNTER → 2024-12-10 13:14 | Outpatient (BNV) | payer OTHER, SELFPAY | PROVIDERS: Absent Provider Advanced Practice Midwife; PCP Internal Medicine; Visit Provider Radiology Diagnostic Radiology | DX: N83.201 Unspecified ovarian cyst, right side (principal); N83.202 Unspecified ovarian cyst, left side | CPT/HCPCS: 76830; 76856; 93976 ==

== ENCOUNTER 2024-12-12 15:01 | Outpatient (REF) | payer OTHER, SELFPAY ==
--- OUTSIDE RECORDS SUMMARY | 2024-12-12 15:32 | XMS_ITS | Clinical Summary ---
Author Organization [facility] Address [id number] [place] [phone] Care Team Providers Care Hearing Aid Assembly Supervisor Name Role Phone Unavailable Primary Care Provider Unavailabl e Surgical History Surgery Date Site/Laterality Comments RECTAL SURGERY PROCEDURE:RECTAL SURGERY ANAL FISTULOTOMY 03/14/2018 N/A PROCEDURE:ANAL FISTULOTOMY;COMMENT:Procedure: LIFT PROCEDURE; Surgeon: Sinai Carlisle MD; Location: [facility] MAIN OPERATING ROOM; Service: Colorectal; Laterality: N/A; EXAMINATION UNDER ANESTHESIA 05/30/2017 N/A PROCEDURE:EXAMINATION UNDER ANESTHESIA;COMMENT:Procedure: EXAM UNDER ANESTHESIA; Surgeon: Sinai Carlisle MD; Location: [facility] MAIN OPERATING ROOM; Service: Colorectal; Laterality: N/A; OTHER SURGICAL HISTORY 05/30/2017 N/A PROCEDURE:TREATMENT FISTULA ANAL;COMMENT:Procedure: PLACEMENT OF SETON; Surgeon: Sinai Carlisle MD; Location: [facility] MAIN OPERATING ROOM; Service: Colorectal; Laterality: N/A; [...]
[2024-12-14 08:53] LABS: CA-125 13 U/mL (<35)
== END 2024-12-12 15:02 | disposition home or self-care (01) ==
LOC: HO.LAB 15:01
PROVIDERS: PCP Internal Medicine; Visit Provider Obstetrics & Gynecology
DX: N83.202 Unspecified ovarian cyst, left side (principal)
CPT/HCPCS: 36415; 86304; 99212

== ENCOUNTER 2024-12-19 09:30 | Outpatient (AMB) | payer OTHER, SELFPAY ==
--- NOTE | 2024-12-19 09:30 | A.OFFVIS_ITS ---
Intake Visit Reasons: follow up u/s per Allergies No Known Allergies Allergy (Verified 09/30/24 09:28) HPI Comments Details: The patient is scheduled tele health visit for follow-up Pelvic ultrasound done on 12/10/2025 showed the following: Uterus: The uterus is anteverted and measures 9 x 5 x 6 cm. Endocervical canal and cervix are normal. The double wall endometrial thickness is 9 mm. The uterus is smooth in contour and has normal myometrial echogenicity. No visible fibroid. Adnexa: Both ovaries are visualized. There is normal color flow to the adnexa. There is no ovarian torsion. There is no pelvic ascites or fluid collection. Right ovary measures 4 x 3 x 4 cm. Volume: 22 cc. There is a 2.6 cm anechoic lesion without flow on color Doppler interrogation. Left ovary measures 7 x 4 x 6 cm. Volume is 48 cc. There is a 6 cm lobulated anechoic lesion without flow on color Doppler interrogation. Simple 6 cm cyst, left ovary. Overall stable since prior exam. Discussed with Dr. Felipe Raymundo on December 19, 2024 at 10:00 AM 12/12/2024 CA 125 =13 [facility] Medical History Skin lesion of cheek Fullness of breast Breast pain, right Simple ovarian cyst Other obesity due to excess calories Obesity (BMI 30.0-34.9) Plantar fasciitis Abdominal pain Dysfunctional uterine bleeding Surgical History History of surgical removal of skin lesion (~09/19/24) History of rectal abscess Family History Father No problems noted. Mother Breast lump Sister No problems noted. 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 occupational exposures/hazards: No Gender identity: Female Cognitive needs: No Hearing needs: No Vision needs: Yes Female Reproductive History Menstrual Age of Menarche: 12 Review of Systems Const All systems reviewed & are unremarkable except as noted in HPI and below Reports as per HPI and Reports no additional complaints GI Reports no additional complaints Reports no additional complaints Telehealth Telehealth Telehealth Platform: Telephone Location of provider rendering services: practice address Location of patient: address on file Patient Identification confirmed using: Name, : Yes Telehealth method: video Patient verbally consented to treatment: Yes Patient verbally consented to billing insurance company: Yes Patient informed of any privacy concerns related to visit: Yes Minutes spent on Phone/Video with Pt.: 4 Assessment & Plan Assessment & Plan (1) Ovarian cyst: Comment: Left ovarian cyst Persistent since 05/27 Code(s): N83.209 - Unspecified ovarian cyst, unspecified side Category: Medical Qualifiers: Laterality: left Qualified Code(s): N83.202 - Unspecified ovarian cyst, left side Plan: Discussed with the patient the results of CA 125, it sensitivity, specificity, false-positive and negative rate. In addition, discussed with the patient the finding on ultrasound showing persistent simple 6 cm ovarian cyst with no evidence of suspicious features,. Signs and symptoms of rupture and /or torsion were discussed with the patient, she is to call or go to emergency room in case of pelvic pain and or nausea or vomiting. Recommended repeat pelvic ultrasound in six-months. Order placed. Instructions given the patient to avoid strenuous exercise and intercourse and to schedule an ultrasound with a follow-up appointment in six-months. All questions answered, the patient verbalized understanding I spent a total of 20 minutes reviewing the chart, talking to the patient via video and documenting in the medical record. Orders: Orders US pelvic and transvaginal 6 Months N83.209 - Unspecified ovarian cyst, unspecified side Coding Level of Care Code Tele Est Pt Level 3 (91212) Diagnoses Cyst of left ovary N83.202 Laterality: left
--- OUTSIDE RECORDS SUMMARY | 2024-12-19 09:59 | XMS_ITS | Clinical Summary ---
Author Organization [facility] Address [address] [place] [phone] Care Team Providers Care Nuclear Reactor Technician Name Role Phone Unavailable Primary Care Provider Unavailabl e Surgical History Surgery Date Site/Laterality Comments RECTAL SURGERY PROCEDURE:RECTAL SURGERY ANAL FISTULOTOMY 03/14/2018 N/A PROCEDURE:ANAL FISTULOTOMY;COMMENT:Procedure: LIFT PROCEDURE; Surgeon: Sinai Carlisle MD; Location: [facility] MAIN OPERATING ROOM; Service: Colorectal; Laterality: N/A; EXAMINATION UNDER ANESTHESIA 05/30/2017 N/A PROCEDURE:EXAMINATION UNDER ANESTHESIA;COMMENT:Procedure: EXAM UNDER ANESTHESIA; Surgeon: Sinai Carlisle MD; Location: [facility]IN OPERATING ROOM; Service: Colorectal; Laterality: N/A; OTHER SURGICAL HISTORY 05/30/2017 N/A PROCEDURE:TREATMENT FISTULA ANAL;COMMENT:Procedure: PLACEMENT OF SETON; Surgeon: Sinai Carlisle MD; Location: [facility] MAIN OPERATING RO[facility]; Service: Colorectal; Laterality: N/A; [...] drink = 0.6 oz pur e alcohol) Comments Unknown Sex and Gender Information Value Date Recorded Sex Assigned at Not on file Legal Sex Female 1:39 AM EST Gender Identity Not on file Sexual Orientation [...] patient's age to complete this topic Meningococcal B Vacine Aged Out No lo nger eligible based on patient's age to complete [...]
--- OUTSIDE RECORDS SUMMARY | 2024-12-19 09:59 | XMS_ITS | Clinical Summary ---
Author Organization [facility] Address [address] [place] [address] Care Team Providers Care Cinder Crusher Operator Name Role Phone Unavailable Primary Care Provider [...]
== END 2024-12-19 11:11 | disposition home or self-care (01) ==
PROVIDERS: PCP Internal Medicine; Visit Provider Obstetrics & Gynecology
DX: N83.202 Unspecified ovarian cyst, left side (principal)
CPT/HCPCS: 99213

== ENCOUNTER 2025-06-18 15:32 | Outpatient (REF) | payer OTHER, SELFPAY ==
--- NOTE | ~2025-06-18 | US_ITS ---
EXAMINATION: US PELVIS CLINICAL INFORMATION: N83.209 - Unspecified ovarian cyst, unspecified side COMPARISON: Ultrasound on December 10, 2024 TECHNIQUE: Ultrasound of the pelvis is performed using both transabdominal and transvaginal transducers along with Doppler. Transvaginal imaging is performed due to inadequate visualization transabdominally. FINDINGS: Uterus: The uterus is anteverted and anteflexed and measures 8.8 x 4.4 x 5.6 cm (volume of 112.6 cc). The double wall endometrial thickness is 0.7 cm. The uterus is smooth in contour and has normal myometrial echogenicity. No focal lesions demonstrated. Adnexa: Right ovary measures 2.9 x 2.9 x 2.5 cm (volume of 10.7 cc). Normal follicular appearance of the right ovary, with the largest follicular cyst measuring 1.7 cm. Left ovary measures 8.8 x 8.0 x 4.0 cm (volume of 148.0 cc) (these measurements include the exophytic cyst). The ovary is enlarged by the presence of an exophytic cyst that measures 6.6 x 4.6 x 3.9 cm. This cyst has anechoic content, without definite solid components. Difficult to determine if it represents the same 5.9 x 4.4 x 4.9 cm cyst that was seen in December 2024. US/US pelvic and transvaginal IMPRESSION: Simple appearing exophytic left ovarian cyst measuring up to 6.6 cm. Electronically signed by: Joaquin Carballo MD 06/19/2025 07:11 AM EDT
--- OUTSIDE RECORDS SUMMARY | 2025-06-18 15:35 | XMS_ITS | Clinical Summary ---
Author Organization [facility] Address [address] [place] [phone] Care Team Providers Care Inlayer Silver Name Role Phone Unavailable Primary Care Provider [...] 2013 COVID-19 Vaccine (2023-2 5 season) 2024 Depression Screening 11/06/2024 Influenza Vaccine (#1) 2025 HIB Vaccines Aged Out No longer eligi [...] age to complete this topic Meningococcal B Vaccine Aged Out No l onger eligible based on patient's age to complete this topic Pneumococcal Vaccine: Pediat rics (0 to 5 Years) and At-Risk Patients (6 to 49 Years) Aged Out No longer eligible b ased on patient's age to complete this topic RSV Immunization Patients Un fatmata 20 months Aged Out No longer eligible b ased on patient's age to complete this topic Varicella Vaccines Aged Out No longer eligible based on patient's age to complete this topic
--- OUTSIDE RECORDS SUMMARY | 2025-06-18 15:35 | XMS_ITS | Clinical Summary ---
Author Organization [facility] Address [address] [place] [address] Care Team Providers Care Manager Analytical Name Role Phone Unavailable Primary Care Provider [...] 77 05/28/2018 4:07 PM EDT Temperature 37.1 C (98.7 F) 03/14/2018 12:30 PM EDT Respiratory Rate 13 03/14/2018 12:45 PM EDT [...] (P ap Smear) 2013 Influenza Vaccine (#1) 2025 Pneumococcal Vaccine Aged Out No long er eligible based on patient's age to complete this topic RSV Ped < 20 months Aged Out No longe r eligible based on patient's age to complete this topic
== END 2025-06-18 15:33 | disposition home or self-care (01) ==
LOC: HO.US 15:32
PROVIDERS: PCP Internal Medicine; Visit Provider Obstetrics & Gynecology
DX: N83.209 Unspecified ovarian cyst, unspecified side (principal)
CPT/HCPCS: 76830; 76856

== ENCOUNTER → 2025-06-18 15:35 | Outpatient (BNV) | payer OTHER, SELFPAY | PROVIDERS: PCP Internal Medicine; Visit Provider Radiology Body Imaging | DX: N83.202 Unspecified ovarian cyst, left side (principal) | CPT/HCPCS: 76830; 76856 ==

== ENCOUNTER 2025-06-25 09:18 | Outpatient (AMB) | payer OTHER, SELFPAY ==
[2025-06-25 09:39] VITALS: BP 110/82; PULSE 98; RESP 16; TEMP 36.3; O2SAT 99; BMI 26.8
--- NOTE | 2025-06-25 09:39 | A.OFFPC_ITS ---
Vital Signs 06/25/25 09:39 Height 5 ft 3 in Weight 151 lb 8 oz BMI 26.8 BP 110/82 Blood Pressure Location Lt brachial Position Sitting Respiration 16 Pulse 98 Pulse Source Pulse Oximeter Temp 97.3 F Temp Source Temporal Artery Scan Pulse Oximetry (%) 99 Oxygen Delivery Method Room Air Intake Visit Reasons: annual physical Accompanied by: Spouse Allergies No Known Allergies Allergy (Verified 06/25/25 09:42) Tobacco use date assessed: 06/25/25 Dental Screening Dental Screen Date: 06/25/25 Did you have a dental visit in the last 12 months?: Yes Did you have a dental problem in the last 6 months where you did not have access to dental care?: No Was dental information given to patient?: Patient has dentist [facility] Medical History Skin lesion of cheek Fullness of breast Breast pain, right Simple ovarian cyst Other obesity due to excess calories Obesity (BMI 30.0-34.9) Plantar fasciitis Abdominal pain Dysfunctional uterine bleeding Surgical History History of surgical removal of skin lesion (~09/19/24) History of rectal abscess Family History Father No problems noted. Mother Breast lump Sister No problems noted. 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 1. Little interest or pleasure in doing things: not at all 2. Feeling down, depressed, or hopeless: not at all 3. Trouble falling or staying asleep, or sleeping too much: not at all 4. Feeling tired or having little energy: not at all 5. Poor appetite or overeating: not at all 6. Feeling bad about yourself - or that you are a failure or have let yourself or your family down: not at all 7. Trouble concentrating on things, such as reading the newspaper or watching television: not at all 8. Moving or speaking so slowly that other people could have noticed. Or the opposite - being so fidgety or restless that you have been moving around a lot more than usual: not at all 9. Thoughts that you would be better off or of hurting yourself in some way: not at all Total score: 0 Depression Screening Interpretation: Negative Depression Screening Done: Yes 01222 - PHQ-9 Billing: Yes Source: Developed by Drs. Vijay Trevino, Doris Zhou, Nikko Lyon and colleagues, with an educational geno from [employer]. Thrive Questionnaire Date Thrive assessed: 05/28/25 I am a: Patient What is your living situation today?: I have a steady place to live Within the past 12 months, did the food you bought not last and you didn't have the money to get more?: Never true Within the past 12 months, did you worry whether your food would run out before you got money to buy more?: Never true Do you have trouble paying for medicines?: No Do you have trouble getting transportation to medical appointments?: No Do you have trouble paying your heating and electricity bill?: No Do you have trouble taking care of your child, family member or friend?: No Do you have trouble with day-to-day activities such as bathing, preparing meals, shopping, managing finances, etc.?: No Are you currently unemployed and looking for a job?: No Are you interested in more education?: No Currently or been in a relationship where the following occur: No concerns reported THRIVE Score: 0 AUDIT C Alcohol Use Questionnaire (AUDIT-C) 1. How often do you have a drink containing alcohol?: Never 3. How often do you have six or more drinks on one occasion?: Never Total Score: 0 MANN-7 AMB Questionnaire MANN-7 Date MANN - 7 assessed: 06/25/25 Feeling nervous, anxious, or on edge: 1 = Several days (In therapy) Not being able to stop or control worryin = Several days Worrying too much about different things: 1 = Several days Trouble relaxin = Several days Being so restless that it is hard to sit still: 1 = Several days Becoming easily annoyed or irritable: 1 = Several days Feeling afraid as if something awful might happen: 1 = Several days Total MANN-7 score (0-4 normal; 5-9 mild; 10-14 moderate; 15-21 severe): 7 Source: Developed by Drs. Vijay Trevino, Doris Zhou, Nikko Lyon and colleagues, with an educational geno from [employer]. MANN-7 Assessment Billing MANN-7 Assessment Tool: MANN-7 Assessment 51849 Physical exam (Primary Care) Vital Signs: Last Vital Signs Temp 97.3 F 06/25/25 09:39 Pulse 98 06/25/25 09:39 Resp 16 06/25/25 09:39 BP 110/82 06/25/25 09:39 Pulse Ox 99 06/25/25 09:39 Oxygen Delivery Method Room Air 06/25/25 09:39 BMI result Body Mass Index 26.8 Tobacco/Smoking Status: Tobacco use Status Tobacco use date assessed 06/25/25 06/25/25 09:47 Patient Tobacco Use Status Never used Tobacco 06/25/25 09:47 e-Cigarette/Vaping Use Never Used 06/25/25 09:47 PHQ-9: PHQ-9 Score PHQ-9: Total score 0 06/25/25 09:47 Depression Screening Interpretation: Negative Thrive Assessment: Date of Thrive Assessment Date Thrive assessed 05/28/25 06/25/25 09:47 Currently or been in a relationship where the following occur: No concerns reported Coding Level of Care Code Est Pt Prev Care 18-39y(34553) Diagnoses Annual physical exam Z00.00 Additional Codes MANN-7 Assessment Billing - MANN-7 Assessment Tool: MANN-7 Assessment 30699 ([id number]) PHQ-9 - 62904 - PHQ-9 Billing: Yes ([id number]) Assessment & Plan Assessment & Plan (1) Annual physical exam: Code(s): Z00.00 - Encounter for general adult medical examination without abnormal findings Category: Medical Plan: History of Present Illness - The patient is a 35-year-old female presenting with weight management concerns. - She is using semaglutide for weight loss, which has reduced her appetite and eliminated snacking. - She has a history of obesity, previously associated with leg pain, now significantly reduced. - The patient reports low energy levels and is undergoing therapy for mental health, which she finds beneficial. - She denies any current health concerns but will undergo fasting blood work to check for thyroid and anemia issues. - The patient does not engage in regular exercise but accumulates steps at work. Social History - The patient is employed and accumulates steps at work but does not engage in regular exercise. - She is actively managing her weight with medication and is in therapy for mental health support. Review of Systems - General: Reports low energy levels. Denies any other health concerns. - Musculoskeletal: Reports previous leg pain, now improved. - Psychiatric: Reports ongoing therapy for mental health, which is beneficial. - Endocrine: Denies any thyroid issues but will undergo testing. Physical Exam General: Cooperative and healthy appearing Nutritional Appearance: Well nourished Orientation/consciousness: Patient oriented x3 Limitations: No limitations Head: Normal to inspection General: Appearance normal, both eyes and all related structures Neck: Normal visual inspection Chest: Normal palpation of entire chest wall Respiratory: Normal respiratory effort Neurology: Patient oriented x3 Results Plan 1. Obesity - Continue semaglutide for weight management. - Monitor weight and appetite changes. 2. Low Energy - Conduct fasting blood work to evaluate thyroid function and anemia. 3. Mental Health Concerns - Continue therapy sessions for mental health support. Discussion Notes During the visit, we discussed the patient's current use of semaglutide for weight management, which has been effective in reducing appetite and snacking. We also addressed her low energy levels and planned for fasting blood work to check thyroid function and anemia. The patient is encouraged to continue therapy for mental health support, which she finds beneficial. Follow-up appointments will be scheduled based on lab results and any emerging health concerns. Patient Instructions - Continue using semaglutide as prescribed for weight management. - Schedule and complete fasting blood work as instructed. - Maintain therapy sessions for mental health support. - Monitor any changes in energy levels and report them during the next visit. Orders: Orders Complete Blood Count no Diff Today E78.00 - Pure hypercholesterolemia, unspecified Thyroid Stimulating Hormone Today E78.00 - Pure hypercholesterolemia, unspecified UA and rflx microscopic Today E78.00 - Pure hypercholesterolemia, unspecified Basic Metabolic Panel Today E78.00 - Pure hypercholesterolemia, unspecified Lipid Panel Today E78.00 - Pure hypercholesterolemia, unspecified Liver Panel Today E78.00 - Pure hypercholesterolemia, unspecified
--- OUTSIDE RECORDS SUMMARY | 2025-06-25 09:57 | XMS_ITS | Clinical Summary ---
Author Organization [facility] Address [address] [place] [address] Care Team Providers Care Stripper Soft Plastic Name Role Phone Unavailable Primary Care Provider [...]
--- OUTSIDE RECORDS SUMMARY | 2025-06-25 09:57 | XMS_ITS | Clinical Summary ---
Author Organization [facility] Address [address] [place] [phone] Care Team Providers Care Diamond Setter Apprentice Name Role Phone Unavailable Primary Care Provider [...]
== END 2025-06-25 09:57 | disposition home or self-care (01) ==
LOC: HO.HMCH 09:18
PROVIDERS: PCP Internal Medicine; Visit Provider Internal Medicine
DX: Z00.00 Encounter for general adult medical examination without abnormal findings (principal)

== ENCOUNTER → 2025-06-25 09:18 | Outpatient (BNVA) | payer OTHER, SELFPAY | PROVIDERS: PCP Internal Medicine; Visit Provider Internal Medicine | DX: Z00.00 Encounter for general adult medical examination without abnormal findings (principal); E66.9 Obesity, unspecified; E78.00 Pure hypercholesterolemia, unspecified; Z68.26 Body mass index [BMI] 26.0-26.9, adult | CPT/HCPCS: 96127; 99395 ==

== ENCOUNTER 2025-06-26 11:44 | Outpatient (AMB) | payer OTHER, SELFPAY ==
--- NOTE | 2025-06-26 12:14 | MHC.OFFVIS ---
Intake Visit Reasons: ultrasound results Allergies No Known Allergies Allergy (Verified 06/25/25 09:42) HPI Comments Details: The patient is schedule telehealth visit for follow-up ultrasound. Doing well complaining of bladder pressure would last few months and the patient is interested in surgical management of her ovarian cyst 06/30 Pelvic ultrasound done recently showed the following: Uterus: The uterus is anteverted and anteflexed and measures 8.8 x 4.4 x 5.6 cm (volume of 112.6 cc). The double wall endometrial thickness is 0.7 cm. The uterus is smooth in contour and has normal myometrial echogenicity. No focal lesions demonstrated. Adnexa: Right ovary measures 2.9 x 2.9 x 2.5 cm (volume of 10.7 cc). Normal follicular appearance of the right ovary, with the largest follicular cyst measuring 1.7 cm. Left ovary measures 8.8 x 8.0 x 4.0 cm (volume of 148.0 cc) (these measurements include the exophytic cyst). The ovary is enlarged by the presence of an exophytic cyst that measures 6.6 x 4.6 x 3.9 cm. This cyst has anechoic content, without definite solid components. Difficult to determine if it represents the same 5.9 x 4.4 x 4.9 cm cyst that was seen in December 2024. Left ovarian simple cyst have been persistent in stable in size since 05/27, 07/28 Pelvic MRI showed the following: IMPRESSION: 5.5 x 4.2 x 6.2 cm simple left adnexal cyst. This is slightly to the left of midline and anterior to the uterus. This may cause mass effect on the bladder. This is similar to May 2022 exams. 12/31 pelvic ultrasound done was the same 03/28 pelvic ultrasound: IMPRESSION: Stable 5 x 6 cm left ovarian cyst CA 125 in 11/29 was 13, in 12/31 was 12 [facility] Medical History Skin lesion of cheek Fullness of breast Breast pain, right Simple ovarian cyst Other obesity due to excess calories Obesity (BMI 30.0-34.9) Plantar fasciitis Abdominal pain Dysfunctional uterine bleeding Surgical History History of surgical removal of skin lesion (~09/19/24) History of rectal abscess Family History Father No problems noted. Mother Breast lump Sister No problems noted. 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 occupational exposures/hazards: No Gender identity: Female Cognitive needs: No Hearing needs: No Vision needs: Yes Female Reproductive History Menstrual Age of Menarche: 12 Review of Systems Const All systems reviewed & are unremarkable except as noted in HPI and below Reports as per HPI and Reports no additional complaints GI Reports no additional complaints Reports no additional complaints Telehealth Telehealth Telehealth Platform: Telephone Location of provider rendering services: practice address Location of patient: address on file Patient Identification confirmed using: Name, : Yes Telehealth method: video Patient verbally consented to treatment: Yes Patient verbally consented to billing insurance company: Yes Patient informed of any privacy concerns related to visit: Yes Minutes spent on Phone/Video with Pt.: 4 Assessment & Plan Assessment & Plan (1) Ovarian cyst: Comment: Left ovarian cyst Persistent since 05/27 Code(s): N83.209 - Unspecified ovarian cyst, unspecified side Category: Medical Qualifiers: Laterality: left Qualified Code(s): N83.202 - Unspecified ovarian cyst, left side Plan: Discussed with the patient the simple ovarian cyst by ultrasound. Discussed with the patient the Ultrasound findings, the main limitation of transvaginal ultrasonography alone as a diagnostic tool to distinguish benign from malignant masses relates to its lack of specificity and low positive predictive value for cancer. The differential diagnosis discussed with the patient includes the following but not limited to: benign and malignant gynecological and non-gynecological causes. Discussed with the patient options of treatment , including laparoscopy ovarian cystectomy vs. expectant management with repeat US in repeating pelvic US periodically. All pros, cons, risks and benefits of each approach were discussed with the patient including but not limited to a delay in the diagnosis and treatment of ovarian cancer affecting the prognosis; The patient decided to go ahead with surgical management. Will refer to [facility] minimally invasive machine heel seat fitter surgery for further management Instructed the patient to call our office back in case a referral appointment is not scheduled, missed or canceled so that we will assist on rescheduling another appointment, the patient verbalized understanding agreed with the plan. I spent a total of 20 minutes reviewing the chart, talking to the patient via video and documenting in the medical record. Coding Level of Care Code Tele Est Pt Level 3 (68154) Diagnoses Cyst of left ovary N83.202 Laterality: left
== END 2025-06-26 12:48 | disposition home or self-care (01) ==
LOC: HO.HWS 11:44
PROVIDERS: PCP Internal Medicine; Visit Provider Obstetrics & Gynecology
DX: N83.202 Unspecified ovarian cyst, left side (principal)
CPT/HCPCS: 99213

== ENCOUNTER 2025-07-04 10:57 | Outpatient (REF) | payer OTHER, SELFPAY ==
[2025-07-04 11:35] LABS: Hematocrit 38.7 % (37.0-47.0); Hemoglobin 12.4 g/dl (12.0-16.0); Mean Corpuscular HGB Conc 32.0 g/dl (31.0-35.0); Mean Corpuscular Hemoglobin 26.3 pg (27.0-33.0); Mean Corpuscular Volume 82.0 fL (80.0-98.0); NRBC Abs Auto 0.000 X10*3/uL (0.0-0.012); NRBC Pct Auto 0.0 /100WBC (0.0-0.2); Platelet Count 228 X10*3/uL (160-400); Red Blood Count 4.72 X10*6/uL (4.20-5.50); White Blood Count 6.5 X10*3/uL (4.8-10.8)
--- OUTSIDE RECORDS SUMMARY | 2025-07-04 11:38 | XMS_ITS | Clinical Summary ---
Author Organization [facility] Address [address] [place] [address] Care Team Providers Care Motion Picture Actor Name Role Phone Unavailable Primary Care Provider [...]
--- OUTSIDE RECORDS SUMMARY | 2025-07-04 11:38 | XMS_ITS | Clinical Summary ---
Author Organization [facility] Address [id number] [place] [id number] Care Team Providers Care Accountant Auditor Name Role Phone Unavailable Primary Care Provider Unavailabl e Surgical History Surgery Date Site/Laterality Comments RECTAL SURGERY PROCEDURE:RECTAL SURGERY ANAL FISTULOTOMY 03/14/2018 N/A PROCEDURE:ANAL FISTULOTOMY;COMMENT:Procedure: LIFT PROCEDURE; Surgeon: Sinai Carlisle MD; Location: [facility] MAIN OPERATING ROOM; Service: Colorectal; Laterality: N/A; EXAMINATION UNDER ANESTHESIA 05/30/2017 N/A PROCEDURE:EXAMINATION UNDER ANESTHESIA;COMMENT:Procedure: EXAM UNDER ANESTHESIA; Surgeon: Sinai Carlisle MD; Location: [facility] MAIN OPERATING ROOM; Service: Colorectal; Laterality: N/A; OTHER SURGICAL HISTORY 05/30/2017 N/A PROCEDURE:TREATMENT FISTULA ANAL;COMMENT:Procedure: PLACEMENT OF SETON; Surgeon: Sinai Carlisle MD; Location: [facility] MAIN OPERATING ROOM; Service: Colorectal; Laterality: N/A; [...]
[2025-07-04 12:26] LABS: Alanine Aminotransferase 19 U/L (0-31); Albumin Level 4.3 g/dL (3.5-5.0); Alkaline Phosphatase 60 U/L (39-117); Anion Gap 11 (12-20); Aspartate Amino Transferase 22 U/L (5-31); Blood Urea Nitrogen 7 mg/dL (9-16); Calcium 9.3 mg/dL (8.4-10.2); Carbon Dioxide 24 mmol/L (22-29); Chloride 108 mmol/L (96-108); Cholesterol 149 mg/dL (<200); Estimated Glomerular Filt Rate > 60; HDL Cholesterol 31 mg/dL (>40); Potassium 3.9 mmol/L (3.3-5.1); Sodium 139 mmol/L (135-145); Total Protein 7.4 g/dL (6.5-8.0); Triglycerides 77 mg/dL (<150)
[2025-07-04 12:30] LABS: Appearance Urine Clear; Glucose Urine UA Negative (Negative); PH 7.0 (5.0-9.0); Specific Gravity - Urine <= 1.005 (1.005-1.025)
[2025-07-04 12:32] LABS: Thyroid Stimulating Hormone 1.96 uIU/mL (0.32-4.0)
== END 2025-07-04 10:58 | disposition home or self-care (01) ==
LOC: HO.LAB 10:57
PROVIDERS: PCP Internal Medicine; Visit Provider Internal Medicine
DX: E78.00 Pure hypercholesterolemia, unspecified (principal)
CPT/HCPCS: 36415; 80048; 80061; 80076; 81003; 84443; 85027